=== PATIENT | female | born 1945 | race Caucasian/White ===

== ENCOUNTER 2020-11-07 09:05 | Outpatient (CLI) | payer MEDICARE ==
--- NOTE | 2020-11-08 12:28 | Mammography Report ---
BILATERAL DIGITAL SCREENING MAMMOGRAM 3D/2D: 11/07/2020 CLINICAL: Routine screening. Comparison is made to exams dated: 09/28/2012 mammogram, 09/12/2011 mammogram, and 09/10/2010 mammog [facility]. The tissue of both breasts is heterogeneously dense. This ma y lower the sensitivity of mammography. There is an irregular equal density asymmetry with a spiculated margin in the right breast at 11 o'cl ock middle depth. This is more prominent. No other significant masses, calcifications, or other findings are seen in either breast. IMPRESSION: INCOMPLETE: NEEDS ADDITIONAL IMAGING EVALUATION The irregular equal density asymmetry in the right breast is indeterminate. Additional views with po ssible ultrasound are recommended. This exam was interpreted at Station ID: [id number]. NOTE: For mammograms, a report in lay terms will be sent to the patient. Approximately 15% of breast malignancies will not be visualized mammographically. In the management of a palpable breast mass, a negative mammogram must not discourage biopsy of a clinically suspicious lesion. Electronically Signed By: Kristan beckwith/estella:11/07/2020 16:20:05 ACR BI-RADS Category 0: Incomplete 3340F PARENCHYMAL PATTERN: (D) - The breast(s) demonstrate(s) heterogeneously dense fibroglandular parenchy ma. BI-RADS CATEGORY: (0) - 0 Mammo and [place] [id number] Immediate follow-up LATERALITY: (B)
== END 2020-11-07 09:06 | disposition home or self-care (01) ==
LOC: DI.N 09:05
PROVIDERS: ATTEND Internal Medicine
DX: Z12.31 Encounter for screening mammogram for malignant neoplasm of breast (principal); N64.89 Other specified disorders of breast

== ENCOUNTER 2020-12-06 09:40 | Outpatient (CLI) | payer MEDICARE ==
--- NOTE | 2020-12-07 13:24 | Mammography Report ---
UNILATERAL RIGHT DIGITAL DIAGNOSTIC MAMMOGRAM 3D/2D: 12/06/2020 CLINICAL: Patient returns today to evaluate an asymmetry in the right breast. Additional evaluation r equested from prior study. Comparison is made to exams dated: 11/07/2020 mammogram, 12/06/2020 ultrasound - [facility], 09/28/2012 mammogram, 09/12/2011 mammogram, and 09/10/2010 mammogram - [facility]. The tissue of right breast is heterogeneously dense. This may lower the sensitivity of m ammography. There is an irregular equal density asymmetry with a spiculated margin in the right breast at 11 o'cl ock middle depth. This is not significantly changed. No other significant masses or calcifications are seen in the breast. IMPRESSION: INCOMPLETE: NEEDS ADDITIONAL IMAGING EVALUATION The irregular equal density asymmetry in the right breast is indeterminate. An ultrasound is recomme nded and is scheduled to immediately follow this examination. This exam was interpreted at Station ID: [id number]. NOTE: For mammograms, a report in lay terms will be sent to the patient. Approximately 15% of breast malignancies will not be visualized mammographically. In the management of a palpable breast mass, a negative mammogram must not discourage biopsy of a clinically suspicious lesion. Electronically Signed By: Evan Andrade M.D. jr/:12/06/2020 11:34:22 ACR BI-RADS Category 0: Incomplete 3340F PARENCHYMAL PATTERN: (D) - The breast(s) demonstrate(s) heterogeneously dense fibroglandular parenchy ma. BI-RADS CATEGORY: (0) - 0 RECOMMENDATION: (ADDMAM) - Recommend additional mammographic views. recall n/a LATERALITY: (B)
--- NOTE | 2020-12-07 13:24 | Ultrasound Report ---
LIMITED ULTRASOUND OF RIGHT BREAST AND AXILLA: 12/06/2020 CLINICAL: Patient returns today to evaluate a focal asymmetry in the right breast. Comparison is made to exams dated: 12/06/2020 mammogram, [facility], 09/12/2011 mammogram, and 09/10/2010 mammogram - [facility]. Ultrasound of the right breast 9-10 o'clock, and axilla regions was performed. There is a benign complicated cyst in the right breast at 11 o'clock middle depth. IMPRESSION: BENIGN There is no sonographic evidence of malignancy. The complicated cyst in the right breast is benign. Return to annual mammogram screening schedule is recommended. This exam was interpreted at Station ID: [id number]. Electronically Signed By: Evan Andrade M.D., jr/estella:12/06/2020 11:34:47 Ultrasound BI-RADS: 2 Benign BI-RADS CATEGORY: (2) - 2 Mammogram [id number] return to screening LATERALITY: (B)
== END 2020-12-06 09:41 | disposition home or self-care (01) ==
LOC: DI 09:40
PROVIDERS: ATTEND Internal Medicine
DX: R92.8 Other abnormal and inconclusive findings on diagnostic imaging of breast (principal); N60.01 Solitary cyst of right breast

== ENCOUNTER 2022-07-15 10:15 | Outpatient (CLI) | payer MEDICARE ==
[2022-07-15 10:36] LABS: BASOPHILS % (AUTO) 0.6 %; EOSINOPHILS # (AUTO) 0.1 10^3/uL (0.0-0.7); HCT - HEMATOCRIT 42.9 % (37.0-47.0); HGB - HEMOGLOBIN 13.4 g/dL (12.0-16.0); LYMPHOCYTES # (AUTO) 1.4 10^3/uL (1.5-3.5); LYMPHOCYTES % (AUTO) 22.2 %; MEAN CORPUSCULAR HEMOGLOBIN 25.4 pg (27.0-31.0); MEAN CORPUSCULAR HGB CONC 31.2 g/dL (32.0-36.0); MEAN CORPUSCULAR VOLUME 81.4 fL (81.0-99.0); MEAN PLATELET VOLUME 8.9 fL (7.9-10.8); MONOCYTES # (AUTO) 0.6 10^3/uL (0.0-1.0); MONOCYTES % (AUTO) 9.8 %; NEUTROPHILS # (AUTO) 4.2 10^3/uL (1.5-6.6); NEUTROPHILS % (AUTO) 65.2 %; PLT - PLATELET COUNT 353 10^3/uL (130-450); RED BLOOD COUNT 5.27 10^6/uL (4.20-5.40); RED CELL DISTRIBUTION WIDTH 14.3 % (12.0-15.0); WHITE BLOOD COUNT 6.4 x10^3/uL (4.8-10.8)
[2022-07-15 10:50] LABS: ALBUMIN 4.8 g/dL (3.2-5.5); BILIRUBIN,DIRECT 0.1 mg/dL (0.1-0.5); BILIRUBIN,TOTAL 0.6 mg/dL (0.2-1.0); TOTAL PROTEIN 8.4 g/dL (6.7-8.2)
== END 2022-07-15 10:16 | disposition home or self-care (01) ==
LOC: LAB 10:15
PROVIDERS: ATTEND Physician Assistant
DX: B35.3 Tinea pedis (principal)
CPT/HCPCS: 36415; 80076; 85025

== ENCOUNTER 2022-08-02 08:00 | Outpatient (CLI) | payer MEDICARE ==
[2022-08-02 16:03] LABS: BASOPHILS % (AUTO) 0.5 %; EOSINOPHILS # (AUTO) 0.2 10^3/uL (0.0-0.7); HCT - HEMATOCRIT 42.7 % (37.0-47.0); HGB - HEMOGLOBIN 13.5 g/dL (12.0-16.0); LYMPHOCYTES # (AUTO) 1.9 10^3/uL (1.5-3.5); LYMPHOCYTES % (AUTO) 24.5 %; MEAN CORPUSCULAR HEMOGLOBIN 25.5 pg (27.0-31.0); MEAN CORPUSCULAR HGB CONC 31.6 g/dL (32.0-36.0); MEAN CORPUSCULAR VOLUME 80.7 fL (81.0-99.0); MEAN PLATELET VOLUME 9.4 fL (7.9-10.8); MONOCYTES # (AUTO) 0.9 10^3/uL (0.0-1.0); MONOCYTES % (AUTO) 11.3 %; NEUTROPHILS # (AUTO) 4.7 10^3/uL (1.5-6.6); NEUTROPHILS % (AUTO) 61.4 %; PLT - PLATELET COUNT 337 10^3/uL (130-450); RED BLOOD COUNT 5.29 10^6/uL (4.20-5.40); RED CELL DISTRIBUTION WIDTH 14.5 % (12.0-15.0); WHITE BLOOD COUNT 7.7 x10^3/uL (4.8-10.8)
[2022-08-02 16:57] LABS: ALBUMIN 4.7 g/dL (3.2-5.5); ALBUMIN/GLOBULIN RATIO 1.2 (1.0-2.2); ALKALINE PHOSPHATASE 73 IU/L (42-121); ALT ALANINE AMINOTRANSFERASE 29 IU/L (10-60); AST ASPARTATE AMINOTRANSFERASE 23 IU/L (10-42); BILIRUBIN,TOTAL 0.2 mg/dL (0.2-1.0); BUN - BLOOD UREA NITROGEN 14 mg/dL (6-20); CALCIUM 9.6 mg/dL (8.5-10.3); CARBON DIOXIDE - CO2 27 mmol/L (21-32); CHLORIDE 98 mmol/L (101-111); CHOLESTEROL 294 mg/dL; CREATININE 0.9 mg/dL (0.4-1.0); GFR - MDRD 61 (>89); GLUCOSE 96 mg/dL (70-100); HDL CHOLESTEROL 59 mg/dL; LDL CHOLESTEROL,CALCULATED 191 mg/dL; LDL/HDL RATIO 3.2 (<4.4); POTASSIUM 3.8 mmol/L (3.5-5.0); SODIUM 136 mmol/L (135-145); TOTAL PROTEIN 8.5 g/dL (6.7-8.2); TRIGLYCERIDES 219 mg/dL; VLDL CHOLESTEROL 44 mg/dL
[2022-08-02 18:06] LABS: ESTIMATED AVERAGE GLUCOSE 137 mg/dL (70-100); HEMOGLOBIN A1c% 6.4 % (4.27-6.07)
== END 2022-08-02 23:59 | disposition home or self-care (01) ==
LOC: LAB.R 08:00
PROVIDERS: ATTEND Internal Medicine
DX: Z00.00 Encounter for general adult medical examination without abnormal findings (principal); L30.9 Dermatitis, unspecified; R19.5 Other fecal abnormalities; R73.01 Impaired fasting glucose; D72.810 Lymphocytopenia; J45.909 Unspecified asthma, uncomplicated; R42 Dizziness and giddiness
CPT/HCPCS: 80053; 80061; 83036; 83721; 84443; 85025

== ENCOUNTER 2023-08-20 07:44 | Outpatient (CLI) | payer MEDICARE ==
--- NOTE | 2023-08-20 15:35 | Mammography Report ---
BILATERAL DIGITAL SCREENING MAMMOGRAM 3D/2D: 08/20/2023 CLINICAL: Routine screening. Comparison is made to exams dated: 08/12/2022 mammogram, 12/06/2020 mammogram, and 11/07/2020 mammogram - [facility]. Both breasts are heterogeneously dense, which may obscure small masses (category c / 51-75% glandular tissue). No significant masses, calcifications, or other findings are seen in either breast. There has been no significant interval change. IMPRESSION: NEGATIVE There is no mammographic evidence of malignancy. A 1 year screening mammogram is recommended. Based on the Tyrer Cuzick model (a risk assessment model) the patients lifetime risk is 4.1% and her 10 year risk is 4.1%. According to the ACR, ACS, and NCCN guidelines, an annual breast MRI exam chikis g with mammogram is recommended if the patients lifetime risk is 20% or greater. This exam was interpreted at Station ID: [id number]. NOTE: For mammograms, a report in lay terms will be sent to the patient. Approximately 15% of breast malignancies will not be visualized mammographically. In the management of a palpable breast mass, a negative mammogram must not discourage biopsy of a clinically suspicious lesion. Electronically Signed By: Griffin smith/estella:08/20/2023 14:56:14 letter sent: No_Letter ACR BI-RADS Category 1: Negative 3341F PARENCHYMAL PATTERN: (D) - The breast(s) demonstrate(s) heterogeneously dense fibroglandular tameka espinal. BI-RADS CATEGORY: (1) - 1 Mammogram [id number] 1 year screening LATERALITY: (B)
== END 2023-08-20 07:45 | disposition home or self-care (01) ==
LOC: DI 07:44
PROVIDERS: ATTEND Internal Medicine
DX: Z12.31 Encounter for screening mammogram for malignant neoplasm of breast (principal); R92.333 Mammographic heterogeneous density, bilateral breasts

== ENCOUNTER 2024-02-16 09:05 | Outpatient (CLI) | payer MEDICARE ==
--- NOTE | 2024-02-16 14:37 | MRI Report ---
PROCEDURE: MRI brain without contrast INDICATIONS: VERTIGO TECHNIQUE: Multiplanar multisequential MR images of the brain were obtained without contrast COMPARISON: None FINDINGS: CSF Spaces: Basal cisterns are patent. No extra-axial fluid collections. Ventricles are normal in size and shape. Brain: No intracranial masses or hemorrhage. Flores/white matter interface is normal. Brainstem appe ars normal. Diffusion-weighted images shows no evidence of acute infarct. Normal intravascular flow voids are present. Moderate atrophy and mild white matter chronic ischemic changes noted. Old lacunar infarct noted in t he right thalamus. Skull and face: Calvarium has normal marrow signal. Orbits appear normal. Sinuses: Sinuses and mastoids are clear. IMPRESSION: Atrophy, chronic ischemic change in old thalamic lacunar infarct without acute infarct, hemorrhage or mass lesion Reviewed by: Johnny Diaz MD on 02/16/2024 1:35 PM JOHN Approved by: Johnny Diaz MD on 02/16/2024 1:35 PM AKCLARISSA Station ID: [id number]
== END 2024-02-16 09:06 | disposition home or self-care (01) ==
LOC: DI 09:05
PROVIDERS: ATTEND Internal Medicine
DX: R42 Dizziness and giddiness (principal); Z86.73 Personal history of transient ischemic attack (TIA), and cerebral infarction without residual deficits

== ENCOUNTER 2024-03-01 10:48 | Emergency (ER) | payer MEDICARE ==
--- NOTE | 2024-03-01 11:30 | ED Physician Documentation ---
PD HPI HEADACHE - Stated complaint Stated Complaint: DIZZINESS,CONFUSION,SLURRED SPEECH - Chief complaint Chief Complaint: Neuro - History obtained from History obtained from: Patient - Additional information Additional information: 78-year-old female with history of vertigo presents by private vehicle from home for headache and nausea. Patient states that she was doing her normal daytime routine when she felt a sudden severe frontal headache. She states that while she was in pain she was very confused and could not do things such as take her shirt off or brush her teeth. Her came home and when she told him her symptoms he brought her in for evaluation. Triage complaint states slurred speech, patient denies any slurred speech, stating that it was confusion with her headache that caused her to come to the ER today. Speech is currently clear, intelligible. Review of Systems Constitutional: denies: Fever, Chills Cardiac: denies: Chest pain / pressure, Palpitations, Calf pain Respiratory: denies: Dyspnea, Cough, Wheezing GI: reports: Nausea. denies: Abdominal Pain, Vomiting, Constipation, Diarrhea Skin: denies: Rash, Lesions, Abrasion (s), Laceration (s) Neurologic: reports: Confused, Headache. denies: Generalized weakness, Focal weakness, Numbness, Syncope, Seizure, Head injury PD PAST MEDICAL HISTORY - Present Medications Home Medications: Ambulatory Orders Medication Instructions Recorded Confirmed amLODIPine [Norvasc] 5 mg PO DAILY #30 tablet 03/01/24 - Allergies Allergies/Adverse Reactions: Allergies Allergy/AdvReac Type Severity Reaction Status Date / Time codeine Allergy Unknown Verified 03/01/24 11:03 fentanyl Allergy Unknown Verified 03/01/24 11:02 Iodinated Contrast Media Allergy Anaphylaxis Verified 03/01/24 11:02 - Social History Does the pt smoke?: No Smoking Status: Never smoker Does the pt drink ETOH?: No Does the pt have substance abuse?: No - Immunizations Immunizations are current?: Yes - POLST Patient has POLST: No PD ED PE NORMAL - Vitals Vital signs reviewed: Yes - General General: Alert and oriented X 3, No acute distress, Well developed/nourished - HEENT HEENT: Atraumatic, PERRL, EOMI - Neck Neck: Supple, no meningeal sign - Cardiac Cardiac: RRR, Strong equal pulses - Respiratory Respiratory: No respiratory distress, Clear bilaterally - Abdomen Abdomen: Soft, Non tender, Non distended - Derm Derm: Normal color, Warm and dry, No rash - Extremities Extremities: No deformity, No tenderness to palpate, Normal ROM s pain, No edema - Neuro Neuro: Alert and oriented X 3, 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 On arrival patient is awake, alert, no acute distress. Speech is clear and intelligible, she moves all extremities without any difficulty. NIH 0. Due to thunderclap type onset of headache a CT scan will be ordered and a headache cocktail ordered. CT imaging negative for acute findings. Patient did have elevated blood p ressure on arrival, which she states she never has and a dose of hydralazine ordered. Hydralazine resolved patient's elevated blood pressure. Patient received headache cocktail, states that she "does not feel worse". She states she still has a headache. I asked patient what normally helps with her headaches and she says "nothing". I offered additional headache medications to her, however patient declined stating that she would like to go home. Patient informed of her elevated blood pressure reading and offered to start her on a low-dose blood pressure medication. Patient accepted. She was advised to follow-up with primary care doctor for further management of elevated blood pressure readings. ED return precautions discussed at bedside. Departure - Departure Disposition: 01 Home, Self Care Clinical Impression: Headache Condition: Stable Instructions: ED Headache Migraine Prescriptions: amLODIPine [Norvasc] 5 mg PO DAILY #30 tablet Comments: Your CT imaging today was normal. I do not know the exact cause of your headache. You may take Tylenol and ibuprofen at home as needed for pain. Make sure to stay well-hydrated. Follow-up with your primary care doctor Your blood pressure here today was high. I will be starting you on a low-dose blood pressure medication until you can see your primary care doctor. Amlodipine has been sent to the [facility] in [place] Forms: PCP List Discharge Date/Time: 03/01/24 14:06
[2024-03-01] MEDS: ONDANSETRON 4 MG/2 ML VIAL IVP STA (11:47)
[2024-03-01] MEDS: SODIUM CHLORIDE 0.9% 1,000 ML IV STA (11:47)
--- NOTE | 2024-03-01 12:02 | CT Report ---
PROCEDURE: Head WO INDICATIONS: thunderclap headache TECHNIQUE: Noncontrast 4.5 mm thick angled axial sections acquired from the foramen magnum to the vertex. For r adiation dose reduction, the following was used: automated exposure control, adjustment of mA and/or kV according to patient size. COMPARISON: Brain MRI dated 02/16/2024. FINDINGS: Image quality: Excellent. CSF spaces: Basal cisterns are patent. No extra-axial fluid collections. Ventricles are normal in size and shape. Brain: No midline shift. No intracranial masses or hemorrhage. Flores-white matter interface is norm al. Age-related volume loss and very mild, age-appropriate small vessel ischemic change. Old small fo ervin right thalamic lacunar infarction Skull and face: Calvarium and visualized facial bones are intact, without suspicious lesions. Sinuses: Visualized sinuses and mastoids are clear. There is a prominent osteophytic bar off of the nasal septum to the left, narrowing the left nasal passage. IMPRESSION: No acute intracranial pathology. Age-appropriate volume loss and mild small vessel ischemic change, old right thalamic lacunar infarct ion. Reviewed by: Hamilton Orlando MD on 03/01/2024 12:00 PM PDT Approved by: Hamilton Orlando MD on 03/01/2024 12:00 PM PDT Station ID: [id number]
[2024-03-01] MEDS: diphenhydrAMINE INJ 50 MG/ML VIAL IVP STA (12:26)
[2024-03-01] MEDS: METOCLOPRAMIDE 10 MG/2 ML VIAL IVP STA (12:26)
[2024-03-01] MEDS: KETOROLAC 15 MG/ML VIAL IVP STA (12:27)
[2024-03-01] MEDS: hydrALAZINE INJ 20 MG/ML VIAL IVP STA (12:56)
[2024-03-01 13:39] VITALS: O2SAT 99
[2024-03-01 14:08] VITALS: BP 168/85
== END 2024-03-01 14:06 | disposition home or self-care (01) ==
LOC: ED 10:48
DX: R51.9 Headache, unspecified (principal); R03.0 Elevated blood-pressure reading, without diagnosis of hypertension
CPT/HCPCS: 36415; 70450; 96361; 96374; 96375; 99283; 99284; J1200; J2765

== ENCOUNTER 2024-04-16 16:53 | Outpatient (CLI) | payer MEDICARE ==
--- NOTE | 2024-04-17 20:52 | Ultrasound Report ---
PROCEDURE: Carotid Doppler Complete INDICATIONS: AMS TECHNIQUE: Color and pulse Doppler interrogation was performed of both carotid systems, with image documentation and velocity measurements. COMPARISON: None. FINDINGS: Right side: Brachial blood pressure: 185/73 mm Hg. Common carotid artery peak systolic velocity: 58.26 cm/sec. Internal carotid artery peak systolic velocity: 65.58 cm/sec. Internal carotid artery end diastolic velocity: 14.4 cm/sec. External carotid artery peak systolic velocity: 88.53 cm/sec. ICA/CCA peak systolic ratio: 1.1 . Flores scale imaging description: Mild atherosclerotic plaque. Percent internal carotid artery stenosis: Less than 50 percent stenosis. Vertebral artery: Flow direction is antegrade. Left side: Brachial blood pressure: 176/67 mm Hg. Common carotid artery peak systolic velocity: 57.12 cm/sec. Internal carotid artery peak systolic velocity: 67.02 cm/sec. Internal carotid artery end diastolic velocity: 18.28 cm/sec. External carotid artery peak systolic velocity: 100.32 cm/sec. ICA/CCA peak systolic ratio: 1.2 . Flores scale imaging description: Mild atherosclerotic plaque. Percent internal carotid artery stenosis: Less than 50 percent stenosis. Vertebral artery: Flow direction is antegrade. IMPRESSION: 1. In the right internal carotid artery, there is less than 50 percent stenosis based on peak systoli c velocity criteria. 2. In the left internal carotid artery, there is less than 50 percent stenosis based on peak systolic velocity criteria. 3. Antegrade blood flow within the right vertebral artery. 4. Antegrade blood flow within the left vertebral artery. The estimate of stenosis included in the report of the imaging study was calculated using the [facility]-end orsed standards of carotid artery stenosis. Reviewed by: Ishan Ortiz MD on 04/17/2024 8:50 PM PDT Approved by: Ishan Ortiz MD on 04/17/2024 8:50 PM PDT Station ID: [id number]
== END 2024-04-16 16:54 | disposition home or self-care (01) ==
LOC: DI 16:53
PROVIDERS: ATTEND Internal Medicine
DX: I65.23 Occlusion and stenosis of bilateral carotid arteries (principal); R41.82 Altered mental status, unspecified
CPT/HCPCS: 93880

== ENCOUNTER 2024-08-15 08:51 | Inpatient (IN) ==
--- NOTE | 2024-08-15 08:55 | ED Physician Documentation ---
PD HPI FOCAL NEURO Stated complaint Stated Complaint: CODE STROKE Chief complaint Chief Complaint: Neuro History obtained from History obtained from: Patient, Family and EMS History of Present Illness Timing - onset: How many days ago (5 days ago initial symptoms that have undulated but not resolved until last evening/today, when they are worse. Trobuel speaking but can follow commands okay. Right sided weakness) Timing - duration: Days Timing - details: Still present and Waxing and waning; No Intermittant Severity of deficit: Moderate Weakness: Face, Arm, Leg, Right and Left (faace) Numbness: Face, Arm, Leg and Right Associated symptoms: No Headache, Nausea / vomiting, Fall or Head injury Contributing factors: negative Anticoagulated or Atrial fibrillation Similar symptoms before: Work up / diagnostics (Had prior symptoms this past summer in February or March with evaluation by CT and MRI and carotid Dopplers. No vascular occlusions. No new injury at the time. There was evidence for an old lacunar infarct. Had a heart monitor as well. Currently on baby aspirin.) Meds/Allgy Home Medications Ambulatory Orders Medication Instructions Recorded Confirmed amlodipine 5 mg tablet 5 mg PO DAILY #30 tabs 03/01/24 08/15/24 aspirin 81 mg chewable tablet 81 mg PO DAILY 08/15/24 08/15/24 Allergies Allergies Allergy/AdvReac Type Severity Reaction Status Date / Time codeine Allergy Unknown Verified 08/15/24 09:56 fentanyl Allergy Unknown Verified 08/15/24 09:56 Iodinated Contrast Media Allergy Anaphylaxis Verified 08/15/24 09:56 [facility] Social History Social History (Updated 08/15/24 @ 09:03 by Griffin Arriaza, RN, BSN) Smoking Status: Never smoker Do you vape?: No Living arrangement: At home Marital Status: Living Condition: With spouse/s.o. Support Person: Yes Relationship: Spouse Physical Activity: Walking Level: Independent Do you feel safe in your home environment?: Yes Suffered physical, verbal, emotional, or financial abuse?: No History of Abuse: No ETOH Use: Wine Frequency: Weekly Substance Use: denies use POLST Patient has POLST: No Exam Constitutional normal general appearance and average body habitus HENMT normocephalic and head/scalp atraumatic Eyes PERRL and EOMs intact bilaterally Neck/C-Spine no carotid bruits Lymph no lymphadenopathy noted Respiratory normal respiratory effort and clear to auscultation bilaterally Cardiovascular normal heart rate noted, regular rhythm noted and no murmur Gastrointestinal abdomen soft to palpation and nontender to palpation Extremities no tenderness Psychiatry mental status grossly normal, oriented x3 and cooperative Skin skin color normal Results Vitals Vitals: Vital Signs - 24 hr 08/15/24 08:55 08/15/24 09:03 08/15/24 09:33 Temperature 36.5 C Temperature Source Temporal Artery Scan Pulse Rate 90 82 81 Respiratory Rate 28 H 18 16 Blood Pressure 142/87 H 167/104 H 189/85 H O2 Saturation 95 95 95 O2 Source Room air Room air Room air Pain Intensity 0 0 0 08/15/24 10:03 08/15/24 10:33 Temperature Temperature Source Pulse Rate 79 79 Respiratory Rate 22 23 Blood Pressure 199/95 H 195/91 H O2 Saturation 95 96 O2 Source Room air Room air Pain Intensity 0 0 Oxygen O2 Source Room air Labs Labs: Laboratory Tests 08/15/24 08:58 WBC 12.5 H RBC 5.37 Hgb 14.0 Hct 43.8 MCV 81.6 MCH 26.1 L MCHC 32.0 RDW 14.0 Plt Count 364 MPV 9.8 Neut # (Auto) 9.9 H Lymph # (Auto) 1.3 L [place] # (Auto) 1.3 H Eos # (Auto) 0.0 Baso # (Auto) 0.0 Absolute Nucleated RBC 0.00 Nucleated RBC % 0.0 ESR 64 H Sodium 135 Potassium 3.7 Chloride 99 L Carbon Dioxide 26 Anion Gap 10.0 BUN 15 Creatinine 0.7 Estimated GFR (MDRD) 81 L Glucose 114 H Calcium 9.5 Magnesium 1.9 Total Bilirubin 0.7 AST 17 ALT 13 Alkaline Phosphatase 58 Total Protein 8.0 Albumin 4.3 Globulin 3.7 Albumin/Globulin Ratio 1.2 Lipase 21 TSH 1.87 PD Medical Decision Making ED course Complexity details: reviewed old records, reviewed results (CT of the head showed a new subacute infarct on the left. No signs of bleeding or swelling. No obvious tumors.), considered differential and d/w seo consultant (Hospitalist) Reviewed Lab Results: The patient does have history of contrast media allergy. We did not therefore immediately do a CT angiogram but we can pretreat and get 1 later. She did have a carotid ultrasound in March which was 4 months ago and showed no stenoses at the time. There is already signs of a infarct pattern and her symptoms have been 4 to 5 days so out of the window for any interventions. Given full aspirin and Plavix here. Discharge Plan Discharge Patient Disposition: ED Place in Observation Condition: Stable Clinical Impression: Acute right-sided weakness, Acute CVA (cerebrovascular accident) NIH Stroke Scale Interval: Baseline Instructions: Administer stroke scale items in the order listed. Record performance in each category after each subscale exam. Do not go back and change scores. Follow directions provided for each exam technique. Scores should reflect what the patient does, not what the clinician thinks the patient can do. The clinician should record answers while administering the exam and work quickly. Except where indicated, the patient should not be coached (i.e., repeated requests to patient to make a special effort) Instructions Scale Definition 3 1a. Level of Consciousness: The legal investigator must choose a response if a full evaluation is prevented by such obstacles as an endotracheal tube, language barrier, orotracheal trauma/bandages. A 3 is scored only if the patient makes no movement (other than reflexive posturing) in response to noxious stimulation. 0 = Alert; keenly responsive. 1 = Not alert; but arousable by minor stimulation to obey, answer, or respond. 2 = Not alert; requires repeated stimula tion to attend, or is obtunded and requires strong or painful stimulation to make movements (not stereotyped). 3 = Responds only with reflex motor or autonomic effects or totally unresponsive, flaccid, and areflexic. 1b. LOC Questions: The patient is asked the month and his/her age. The answer must be correct - there is no partial credit for being close. Aphasic and stuporous patients who do not comprehend the questions will score 2. Patients unable to speak because of endotracheal intubation, orotracheal trauma, severe dysarthria from any cause, language barrier, or any other problem not secondary to aphasia are given a 1. It is important that only the initial answer be graded and that the examiner not "help" the patient with verbal or non-verbal cues. 0 = Answers both questions correctly. 1 = Answers one question correctly. 2 = Answers neither question correctly. 1c. LOC Commands: The patient is asked t o open and close the eyes and then to as400 programmer and release the non-paretic hand. Substitute another one step command if the hands cannot be used. Credit is given if an unequivocal attempt is made but not completed due to weakness. If the patient does not respond to command, the task should be demonstrated to him or her (pantomime), and the result scored (i.e., follows none, one or two commands). Patients with trauma, amputation, or other physical impediments should be given suitable one-step commands. Only the first attempt is scored. 0 = Performs both tasks correctly. 1 = Performs one task correctly. 2 = Performs neither task correctly. 2. Best Gaze: Only horizontal eye moveme nts will be tested. Voluntary or reflexive (oculocephalic) eye movements will be scored, but caloric testing is not done. If the patient has a conjugate deviation of the eyes that can be overcome by voluntary or reflexive activity, the score will be 1. If a patient has an isolated peripheral nerve paresis (CN III, IV or ), score a 1. Gaze is testable in all aphasic patients. Patients with ocular trauma, bandages, pre-existing blindness, or other disorder of visual acuity or lima should be tested with reflexive movements, and a choice made by the legal investigator. Establishing eye contact and then moving about the patient from side to side will occasionally clarify the presence of a partial gaze palsy. 0 = Normal. 1 = Partial gaze palsy; gaze is abnormal in one or both eyes, but forced deviation or total gaze paresis is not present. 2 = Forced deviation, or total gaze pare sis not overcome by the oculocephalic maneuver. 3. Visual: Visual lima (upper and lowe r quadrants) are tested by confrontation, using finger counting or visual threat, as appropriate. Patients may be encouraged, but if they look at the side of the moving fingers appropriately, this can be scored as normal. If there is unilateral blindness or enucleation, visual lima in the remaining eye are scored. Score 1 only if a clear-cut asymmetry, including quadrantanopia, is found. If patient is blind from any cause, score 3. Double simultaneous stimulation is performed at this point. If there is extinction, patient receives a 1, and the results are used to respond to item 11. 0 = No visual loss. 1 = Partial hemianopia. 2 = Complete hemianopia. 3 = Bilateral hemianopia (blind includin g cortical blindness). 4. Facial Palsy: Ask or use pantomime to encourage the patient to show teeth or raise eyebrows and close eyes. Score symmetry of grimace in response to noxious stimuli in the poorly responsive or non-comprehending patient. If facial trauma/bandages, orotracheal tube, tape or other physical barriers obscure the face, these should be removed to the extent possible. 0 = Normal symmetrical movements. 1 = Minor paralysis (flattened nasolabia l fold, asymmetry on smiling). 2 = Partial paralysis (total or near-tot al paralysis of lower face). 3 = Complete paralysis of one or both si rui (absence of facial movement in the upper and lower face). 5. Motor Arm: The limb is placed in the appropriate position: extend the arms (palms down) 90 degrees (if sitting) or 45 degrees (if supine). Drift is scored if the arm falls before 10 seconds. The aphasic patient is encouraged using urgency in the voice and pantomime, but not noxious stimulation. Each limb is tested in turn, beginning with the non-paretic arm. Only in the case of amputation or joint fusion at the shoulder, the examiner should record the score as untestable (UN), and clearly write the explanation for this choice. 0 = No drift; limb holds 90 (or 45) degr ees for full 10 seconds. 1 = Drift; limb holds 90 (or 45) degrees , but drifts down before full 10 seconds; does not hit bed or other support. 2 = Some effort against gravity; limb cannot get to or maintain (if cued) 90 (or 45) degrees, drifts down to bed, but has some effort against gravity. 3 = No effort against gravity; limb fall s. 4 = No movement. UN = Amputation or joint fusion, explain: 5a. Left Arm 5b. Right Arm 6. Motor Leg: The limb is placed in the appropriate position: hold the leg at 30 degrees (always tested supine). Drift is scored if the leg falls before 5 seconds. The aphasic patient is encouraged using urgency in the voice and pantomime, but not noxious stimulation. Each limb is tested in turn, beginning with the non-paretic leg. Only in the case of amputation or joint fusion at the hip, the examiner should record the score as untestable (UN), and clearly write the explanation for this choice. 0 = No drift; leg holds 30-degree positi on for full 5 seconds. 1 = Drift; leg falls by the end of the 5 -second period but does not hit bed. 2 = Some effort against gravity; leg fal ls to bed by 5 seconds, but has some effort against gravity. 3 = No effort against gravity; leg falls to bed immediately. 4 = No movement. UN = Amputation or joint fusion, explain: 6a. Left Leg 6b. Right Leg 7. Limb Ataxia: This item is aimed at fi nding evidence of a unilateral cerebellar lesion. Test with eyes open. In case of visual defect, ensure testing is done in intact visual field. The nnhupm-xott-kywvlq and heel-sow tests are performed on both sides, and ataxia is scored only if present out of proportion to weakness. Ataxia is absent in the patient who cannot understand or is paralyzed. Only in the case of amputation or joint fusion, the examiner should record the score as untestable (UN), and clearly write the explanation for this choice. In case of blindness, test by having the patient touch nose from extended arm position. 0 = Absent. 1 = Present in one limb. 2 = Present in two limbs. UN = Amputation or joint fusion, explain: 8. Sensory: Sensation or grimace to pinp cynthia when tested, or withdrawal from noxious stimulus in the obtunded or aphasic patient. Only sensory loss attributed to stroke is scored as abnormal and the examiner should test as many body areas (arms [not hands], legs, trunk, face) as needed to accurately check for hemisensory loss. A score of 2, severe or total sensory loss, shoul d only be given when a severe or total loss of sensation can be clearly demonstrated. Stuporous and aphasic patients will, therefore, probably score 1 or 0. The patient with brainstem stroke who has bilateral loss of sensation is scored 2. If the patient does not respond and is quadriplegic, score 2. Patients in a coma (item 1a=3) are automatically given a 2 on this item. 0 = Normal; no sensory loss. 1 = Dlda-ac-vvlwyblr sensory loss; patient feels pinprick is less sharp or is dull on the affected side; or there is a loss of superficial pain with pinprick, but patient is aware of being touched. 2 = Severe to total sensory loss; patient is not aware of being touched in the face, arm, and leg. 9. Best Language: A great deal of inform ation about comprehension will be obtained during the preceding sections of the examination. For this scale item, the patient is asked to describe what is happening in the attached picture, to name the items on the attached naming sheet and to read from the attached list of sentences. Comprehension is judged from responses here, as well as to all of the commands in the preceding general neurological exam. If visual loss interferes with the tests, ask the patient to identify objects placed in the hand, repeat, and produce speech. The intubated patient should be asked to write. The patient in a coma (item 1a=3) will automatically score 3 o n this item. The examiner must choose a score for the patient with stupor or limited cooperation, but a score of 3 should be used only if the patient is mute and follows no one-step commands. 0 = No aphasia; normal. 1 = Fiqw-zp-jmuiabjg aphasia; some obvious loss of fluency or facility of comprehension, without significant limitation on ideas expressed or form of expression. Reduction of speech and/or comprehension, however, makes conversation about provided materials difficult or impossible. For example, in conversation about provided materials, examiner can identify picture or naming card content from patients response. 2 = Severe aphasia; all communication is through fragmentary expression; great need for inference, questioning, and guessing by the listener. Range of information that can be exchanged is limited; listener carries burden of communication. Examiner cannot identify materials provided from patient response. 3 = Mute, global aphasia; no usable speech or auditory comprehension. 10. Dysarthria: If patient is thought to be normal, an adequate sample of speech must be obtained by asking patient to read or repeat words from the attached list. If the patient has severe aphasia, the clarity of articulation of spontaneous speech can be rated. Only if the patient is intubated or has other physical barriers to producing speech, the examiner should record the score as untestable (UN), and clearly write an explanation for this choice. Do not tell the patient why he or she is being tested. 0 = Normal. 1 = Pxyp-rp-memugqfh dysarthria; patient slurs at least some words and, at worst, can be understood with some difficulty. 2 = Severe dysarthria; patient's speech is so slurred as to be unintelligible in the absence of or out of proportion to any dysphasia, or is mute/anarthric. UN = Intubated or other physical barrier, explain: 11. Extinction and Inattention (formerly Neglect): Sufficient information to identify neglect may be obtained during the prior testing. If the patient has a severe visual loss preventing visual double simultaneous stimulation, and the cutaneous stimuli are normal, the score is normal. If the patient has aphasia but does appear to attend to both sides, the score is normal. The presence of visual spatial neglect or anosagnosia may also be taken as evidence of abnormality. Since the abnormality is scored only if present, the item is never untestable. 0 = No abnormality. 1 = Visual, tactile, auditory, spatial, or personal inattention or extinction to bilateral simultaneous stimulation in one of the sensory modalities. 2 = Profound mignon-inattention or extinction to more than one modality; does not recognize own hand or orients to only one side of space. The first three images are for question 9) Best Language The following image is for question 10) Dysarthria Citation National Institutes of Health, National [place] of Neurological Disorders and Stroke NIHSS Level of Consciousness Level of consciousness: (0) Alert, Keenly responsive LOC Questions: (0) Answers both Q's correct LOC Commands: (0) Performs both correctly Gaze Best Gaze: (0) Normal Visual Visual: (0) No loss Facial Palsy Facial Palsy: (0) Normal, symmetrical movement Motor Arms (both separate) Motor Arm (right): (1) Drift Motor Arm (left): (0) No drift Motor Legs (both separate) Motor Leg (right): (1) Drift Motor Leg (left): (0) No drift Limb Ataxia Limb Ataxia: (1) Present in 1 limb Sensory Sensory: (1) Hofq-pe-ixscbyri loss Best Language Best Language: (1) hpib-ca-khcvyxf Dysarthria Dysarthria: (0) Normal Extinction and Inattention (formally neg Extinction and inattention: (0) No abnormality Total Score/Results Total Score/Result: 5
[2024-08-15 09:05] LABS: BASOPHILS % (AUTO) 0.3 %; EOSINOPHILS % (AUTO) 0.2 %; HCT - HEMATOCRIT 43.8 % (37.0-47.0); LYMPHOCYTES # (AUTO) 1.3 10^3/uL (1.5-3.5); LYMPHOCYTES % (AUTO) 10.2 %; MEAN CORPUSCULAR HEMOGLOBIN 26.1 pg (27.0-31.0); MEAN CORPUSCULAR VOLUME 81.6 fL (81.0-99.0); MEAN PLATELET VOLUME 9.8 fL (7.9-10.8); MONOCYTES # (AUTO) 1.3 10^3/uL (0.0-1.0); NEUTROPHILS # (AUTO) 9.9 10^3/uL (1.5-6.6); NEUTROPHILS % (AUTO) 78.7 %; PLT - PLATELET COUNT 364 10^3/uL (130-450); RED BLOOD COUNT 5.37 10^6/uL (4.20-5.40); WHITE BLOOD COUNT 12.5 x10^3/uL (4.8-10.8)
[2024-08-15 09:21] LABS: MAGNESIUM 1.9 mg/dL (1.7-2.3)
[2024-08-15 09:27] LABS: ALBUMIN 4.3 g/dL (3.2-5.5); ALBUMIN/GLOBULIN RATIO 1.2 (1.0-2.2); BILIRUBIN,TOTAL 0.7 mg/dL (0.2-1.0); CALCIUM 9.5 mg/dL (8.5-10.3); CREATININE 0.7 mg/dL (0.6-1.3); POTASSIUM 3.7 mmol/L (3.5-4.5)
--- NOTE | 2024-08-15 09:32 | CT Report ---
PROCEDURE: CT Head W/O Stroke Protocol INDICATIONS: unilateral weakness and speech problems TECHNIQUE: Helical axial CT of the brain was obtained without contrast and reformatted in multiple p lanes. COMPLIANCE STATEMENTS: Radiation dose reduction was achieved using automated exposure control or adj ustment of mA and/or kV according to patient size. This study fulfills neurological imaging criteria for inclusion or exclusion of acute stroke therapies based on available published neurological imagi ng guidelines. COMPARISON: 03/01/2024 FINDINGS: CSF spaces: Ventricles are appropriate in size and position. No hydrocephalus. Basal cisterns unre markable. Brain: No midline shift. No intracranial masses or hemorrhage. Geographic hypoattenuation noted gladys suring 2.4 cm involving the left caudate head and surrounding white matter. No evidence of hemorrhagi c conversion. No significant mass effect or midline shift. Moderate atrophy and multifocal white mat ter chronic ischemic change noted. Atherosclerotic vascular calcification noted in the cavernous segm ents of both internal carotid arteries. Old lacunar infarct in the right thalamus remains unchanged. Skull and face: Calvarium and skull base are unremarkable without suspicious lesion. Sinuses: Visualized sinuses and mastoids are clear. IMPRESSION: Subacute infarcts involving the right caudate and surrounding white matter. No hemorrhagic conversion or mass effect. Moderate atrophy and white matter chronic ischemic change Note: Critical results were discussed with patient's ER physician on 08/15/2024 at 8:30 AM [place] time. Reviewed by: Johnny Diaz MD on 08/15/2024 8:30 AM AKST Approved by: Johnny Diaz MD on 08/15/2024 8:30 AM AKST Station ID: [id number]
[2024-08-15 09:33] LABS: THYROID STIMULATING HORMONE 1.87 uIU/mL (0.34-5.60)
[2024-08-15] MEDS: CLOPIDOGREL 75 MG TABLET PO STA (10:38)
[2024-08-15] MEDS: ASPIRIN 325 MG TABLET PO STA (10:38)
[2024-08-15] MEDS: diphenhydrAMINE INJ 50 MG/ML VIAL IVP STA (11:10)
[2024-08-15] MEDS: DEXAMETHASONE 10 MG/ML VIAL IVP STA (11:10)
[2024-08-15] MEDS ORDERED: iohexoL-300 100 ML VIAL ONE (11:51)
[2024-08-15] MEDS ORDERED: ONDANSETRON 4 MG/2 ML VIAL IVP PRN (13:27)
[2024-08-15] MEDS ORDERED: oxyCODONE 5 MG TABLET PO PRN (13:27)
[2024-08-15] MEDS ORDERED: SODIUM CHLORIDE FLUSH 0.9% 10 ML SYRINGE IVP PRN (13:27)
[2024-08-15] MEDS ORDERED: ACETAMINOPHEN 325 MG TABLET PO PRN (13:27)
[2024-08-15] MEDS ORDERED: ONDANSETRON ODT 4 MG TABLET TL PRN (13:27)
--- NOTE | 2024-08-15 13:30 | HISTORY & PHYSICAL EXAMINATION ---
Chief Complaint <Juvenal Amezcua - Last Filed: 08/15/24 17:50> Chief Complaint Chief Complaint: acute CVA History of Present Illness <Juvenal Amezcua - Last Filed: 08/15/24 17:50> Admitted From Admitted From:: ER History Obtained From Records Reviewed: stonee History obtained from: expanse/patient/son Exam Limitations: Aphasia, likely from current complaint. History of Present Illness HPI Comment/Other: Patient is a 78 year old female being admitted from the ER for CVA with symptoms that are reported to have started Friday. In speaking with the patient's , he first noticed slight confusion in the form of expressive aphasia which began on Friday. He reports she was still coherent and functional to a point that did not prompt any immediate alarm. Then on Friday or , he noticed she began to be a little more unsteady when walking. He was concerned with insurance coverage and, due to the patient's history, tried making an appointment with a vascular specialist. Overall he felt the symptoms were progressing very slowing and she still retained a lot of function that did not indicate an obvious stroke, so he did not feel 911 was appropriate or necessary. He continues stating that Friday night, no immediate changes were noted, she was able to eat, take her medications, and otherwise function with the only symptoms being the persistent confusion and unsteadiness. This morning, he states he went to wake her up and noticed significant acute changes prompting him to call 911. Throughout the week, he states the patient never complained of nausea or vomiting. He does note she had a headache, however this is a chronic issue she deals with and she never indicated it was worse than normal. No other signs or symptoms were reported. Patient is currently presenting with minor expressive aphasia stating she is having difficulty putting some thoughts into words. Unable to fully asses mental status, possibly due to aphasia. Communicating is noticeably easier when asking direct yes/no questions, but she can still have basic conversations. She is able to identify objects presented to her and appropriately follow commands. Right sided facial droop observed and confirmed by family members. No obvious strength differences noted between extremities to include cover seamer strengths and upper and lower extremity pushing/pulling. Arm drift and leg drift were insignificant bilaterally. Patient is denying any current headache, nausea, vomiting, swallowing difficulty, chest pain, shortness of breath, or other complaints. <Amy Burrell MD - Last Filed: 08/15/24 18:04> History of Present Illness HPI Comment/Other: Patient is a 78 year old female being admitted from the ER for CVA with symptoms that are reported to have started Friday. In speaking with the patient's , he first noticed slight confusion in the form of expressive aphasia which began on Friday. He reports she was still coherent and functional to a point that did not prompt any immediate alarm. Then on Friday or , he noticed she began to be a little more unsteady when walking. He was concerned with insurance coverage and, due to the patient's history, tried making an appointment with a vascular specialist. Overall he felt the symptoms were progressing very slowing and she still retained a lot of function that did not indicate an obvious stroke, so he did not feel 911 was appropriate or necessary. He continues stating that Friday night, no immediate changes were noted, she was able to eat, take her medications, and otherwise function with the only symptoms being the persistent confusion and unsteadiness. This morning, he states he went to wake her up and noticed significant acute changes prompting him to call 911. Throughout the week, he states the patient never complained of nausea or vomiting. He does note she had a headache, however this is a chronic issue she deals with and she never indicated it was worse than normal. No other signs or symptoms were reported. Patient is currently presenting with minor expressive aphasia stating she is having difficulty putting some thoughts into words. Unable to fully asses mental status, possibly due to aphasia. Communicating is noticeably easier when asking direct yes/no questions, but she can still have basic conversations. She is able to identify objects presented to her and appropriately follow commands. Right sided facial droop observed and confirmed by family members. No obvious strength differences noted between extremities to include cover seamer strengths and upper and lower extremity pushing/pulling. Arm drift and leg drift were insignificant bilaterally. Patient is denying any current headache, nausea, vomiting, swallowing difficulty, chest pain, shortness of breath, or other complaints. He also tells us that she had an episode of vertigo in February 2024 for which she was seen in the emergency room. At that time it was also a TIA. She is followed by Dr. Linda Michel. He was in the midst of trying to get a referral to a neurologist with [facility] but Dr. Michel retired. She has an appointment with Dr. Michel on August 17 but were starting realize that she most likely will not make that appointment Meds/Allgy <Juvenal Amezcua - Last Filed: 08/15/24 17:50> Home Medications Ambulatory Orders Medication Instructions Recorded Confirmed amlodipine 5 mg tablet 5 mg PO DAILY #30 tabs 03/01/24 08/15/24 aspirin 81 mg chewable tablet 81 mg PO DAILY 08/15/24 08/15/24 Allergies Allergies Allergy/AdvReac Type Severity Reaction Status Date / Time codeine Allergy Unknown Verified 08/15/24 09:56 fentanyl Allergy Unknown Verified 08/15/24 09:56 Iodinated Contrast Media Allergy Anaphylaxis Verified 08/15/24 09:56 PFSH <Juvenal Amezcua - Last Filed: 08/15/24 17:50> Medical History Medical History (Updated 08/15/24 @ 17:58 by Amy Burrell MD) History of multiple miscarriages Acute dehydration on trip to [place] 6 yrs ago, airlifted off [facility] and hospitalized Vertigo Hypertension TIA (transient ischemic attack) Surgical History Surgical History (Updated 08/15/24 @ 17:57 by Amy Burrell MD) S/P cervical spinal fusion Family History Family History (Updated 08/15/24 @ 18:00 by Amy Burrell MD) Mother CAD (coronary artery disease) MVA (motor vehicle accident) Brother CAD (coronary artery disease) Father Multiple sclerosis MVA (motor vehicle accident) Brother MVA (motor vehicle accident) Social History Social History (Updated 08/15/24 @ 17:44 by Juvenal Amezcua) Smoking Status: Never smoker Second hand tobacco smoke exposure: No Do you dip or chew tobacco?: No Do you vape?: No Living arrangement: At home Marital Status: Living Condition: With spouse/s.o. Support Person: Yes Relationship: Spouse Physical Activity: Walking Level: Independent Do you feel safe in your home environment?: Yes Suffered physical, verbal, emotional, or financial abuse?: No History of Abuse: No ETOH Use: None and Wine Frequency: Weekly Substance Use: denies use POLST Patient has POLST: No <Amy Burrell MD - Last Filed: 08/15/24 18:04> POLST POLST Status: DNR Review of Systems <Juvenal Amezcua - Last Filed: 08/15/24 17:50> Status of ROS: See HPI Eyes Denies: Field loss, Vision loss or Change in vision Ears, nose, mouth, and throat Reports: Vertigo (Normal for patient); Denies: Ear pain, Change in hearing or Difficulty swallowing Cardiovascular Denies: Irregular heart rate, chest pain, palpitations, edema, swelling of feet/ankles or shortness of breath with exertion Respiratory Denies: Shortness of breath or Cough Gastrointestinal Denies: Abdominal pain, Abdominal distention, Nausea, Vomiting or Difficulty swallowing Musculoskeletal Reports: Other (Strength equal bilaterally, unable to determine if she is below baseline.); Denies: Extremity pain or Muscle pain Neurological Reports: Abnormal gait (Not observe in hospital but reported by family.), Lack of coordination, Vertigo (Normal for patient), Slurred speech and Difficulty communicating thoughts; Denies: Headache Hematologic/Lymphatic Denies: Anemia <Juvenal Amezcua - Last Filed: 08/15/24 17:50> Prior Level of Functionality: Patient was fully self sufficient and lived with her of 50+ years. She was reported to have no prior issues with level of function. Exam <Juvenal Amezcua - Last Filed: 08/15/24 17:50> Exam Patient is presenting with right facial droop following CVA confirmed by CT. Patient is currently in no obvious or acute distress. She is alert and aware of her surroundings and tracking appropriately. She is able to hold a conversation and follow commands despite mild aphasia. Strengths are equal bilaterally but unable to determine if she is at her baseline. Constitutional normal general appearance, no apparent distress and limitations noted [facility] normocephalic Neck/C-Spine visual inspection normal and trachea midline Lymph no lymphadenopathy noted Respiratory breath sounds equal bilaterally, normal respiratory effort, clear to auscultation bilaterally, no wheezes and no rales Cardiovascular normal heart rate noted, regular rhythm noted, no gallop, no rub, no murmur and no JVD Gastrointestinal abdomen normal to inspection, abdomen soft to palpation, nontender to palpation, nondistended and normoactive bowel sounds Back/Pelvis spine normal to inspection, no thoracic spine tenderness and lumbar spine ROM normal Extremities normal to inspection, normal to palpation, no tenderness and full ROM Neurology movement abnormality noted, no focal motor deficit noted, sensory deficit noted, gait abnormality noted, speech abnormality noted, coordination abnormality noted and no pronator drift noted NIH Stroke Score: Total 5 1. 0 2. 0 3. 0 4. 1 Minor facial droop noted. 5. 0 6. 0 7. 1 Difficulty/unable to perform heel to sow. 8. 0 9. 1 Mild aphasia. 10. 1 Mild slurring of words. 11. 1 Unable to articulate feeling when touching both lower extremities simultaneously. Psychiatry cooperative Unable to fully complete orientation status due to aphasia. Skin skin color normal, no rash, no lesions, no ecchymosis noted and no jaundice Conclusion/Plan <Juvenal Amezcua - Last Filed: 08/15/24 17:50> Problem List (1) Acute CVA (cerebrovascular accident): Plan: Based upon patient's last seen normal/symptom onset, she has been well outside the treatment window for antithrombolitics. Patient was adminstered routine post-stroke statin, plavix, aspirin. We have also ordered an MRI and cardiac echo with bubble study for further evaluation which should be completed tomorrow. Will continue to monitor patient and treat as indicated. Patient will also [facility] and snf care needs. (2) DNR (do not resuscitate) discussion: Plan: DNR planning was discussed with the and son. states the plan is to have a DNR order. POLST form should be completed and signed tomorrow. (3) Hypertension: Lab Results Lab results reviewed: Yes 08/15/24 08:58 08/15/24 08:58 Diagnostic Imaging Results Diagnostic Imaging Results: positive See rad report EKG Results EKG Interpreted Independently: Yes <Amy Burrell MD - Last Filed: 08/15/24 18:04> Problem List (1) Acute CVA (cerebrovascular accident): (2) DNR (do not resuscitate) discussion: (3) Hypertension: Plan: Her medications are amlodipine 5 mg daily. If this is an acute stroke we would be allowing permissive hypertension for the first 48 to 72 hours. She is 5 days beyond the window. I am resuming her usual home meds and aiming for a goal of less than 140/90. Core Measures <Amy Burrell MD - Last Filed: 08/15/24 18:04> Anticipated LOS I expect patient to be DC'd or transferred within 96 hours.: Yes DVT/VTE - Prophylaxis VTE/DVT Device ordered at admit?: Yes Stroke - Rehab Assessment Rehab services assessment to be ordered?: Yes
[2024-08-15] MEDS: amLODIPine 5 MG TABLET PO SCH (14:41)
[2024-08-15] MEDS ORDERED: diphenhydrAMINE INJ 50 MG/ML VIAL IVP ONE (16:00)
[2024-08-15] MEDS ORDERED: DEXAMETHASONE 4 MG/ML VIAL IVP SCH ×2 (16:00→17:30)
[2024-08-15] MEDS: SODIUM CHLORIDE FLUSH 0.9% 10 ML SYRINGE IVP SCH (17:27)
--- NOTE | 2024-08-15 18:30 | ADVANCE CARE PLANNING NOTE ---
Advance Care Planning Planning Encounter Date: 08/15/24 Time: 17:00 Purpose: Establish care goals and CODE STATUS Parties in Attendance: Son, , jhoan PA student, hospitalist Decisional Capacity of the Patient: Unable to participate due to her stroke. She is confused, lethargic, with verbal apraxia Diagnosis for Encounter (1) Acute CVA (cerebrovascular accident): Summary: She had a TIA in February of this year. was trying to get her into see a neurologist through their primary care provider. However her primary care provider retired before he can get the referral. Due to see the new primary care provider on August 17 Encounter Subjective/Patient's Story: Is from [place]. Been to her for 57 years. She was a [id number] mom. Had multiple miscarriages and finally was able to conceive 1 son and carry him to term. 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 His last job was for the [employer]. He then suffered a subdural hematoma that needed bur holes. That was about 10 or 11 years ago. He decided to retire to enjoy his life, and they moved to [facility]. They have been very happy here. Both son and regard mom is "healthy". She is active. Drives. Gardens. Cleans house. Is a phenomenal cook. She takes blood pressure medicine. But is otherwise healthy. She does not have any chronic pain problems. Even with her history of C-spine fusion, she does well. She had an episode of vertigo that was diagnosed as a TIA in February of this year. Seen in the ER and sent home. has been struggling to get into see Dr. Michel for the follow-up. Echocardiogram was ordered but the patient never followed through. They have never discussed CODE STATUS. They have not filled out a POLST form. But within the family they have had conversations were they know that if she were to not have a pulse or pressure, she would not want to be resuscitated. Especially if she is disabled as she is now. Currently her disability is severe enough that he would not be able to take her home. So he hopes for her to get rehab, and then get strong enough to get back home. When I asked him [place] and dad requested the [place]. If she is not able to be rehabbed, to live independently again, they will have to start the conversation about what the future holds. Objective/Medical Story: Patient is a 78 year old female being admitted from the ER for CVA with symptoms that are reported to have started Friday. In speaking with the patient's , he first noticed slight confusion in the form of expressive aphasia which began on Friday. He reports she was still coherent and functional to a point that did not prompt any immediate alarm. Then on Friday or , he noticed she began to be a little more unsteady when walking. He was concerned with insurance coverage and, due to the patient's history, tried making an appointment with a vascular specialist. Overall he felt the symptoms were progressing very slowing and she still retained a lot of function that did not indicate an obvious stroke, so he did not feel 911 was appropriate or necessary. He continues stating that Friday night, no immediate changes were noted, she was able to eat, take her medications, and otherwise function with the only symptoms being the persistent confusion and unsteadiness. This morning, he states he went to wake her up and noticed significant acute changes prompting him to call 911. Throughout the week, he states the patient never complained of nausea or vomiting. He does note she had a headache, however this is a chronic issue she deals with and she never indicated it was worse than normal. No other signs or symptoms were reported. Patient is currently presenting with minor expressive aphasia stating she is having difficulty putting some thoughts into words. Unable to fully asses mental status, possibly due to aphasia. Communicating is noticeably easier when asking direct yes/no questions, but she can still have basic conversations. She is able to identify objects presented to her and appropriately follow commands. Right sided facial droop observed and confirmed by family members. No obvious strength differences noted between extremities to include nozzle worker strengths and upper and lower extremity pushing/pulling. Arm drift and leg drift were insignificant kavin aterally. Patient is denying any current headache, nausea, vomiting, swallowing difficulty, chest pain, shortness of breath, or other complaints. He also tells us that she had an episode of vertigo in February 2024 for which she was seen in the emergency room. At that time it was also a TIA. She is followed by Dr. Linda Michel. He was in the midst of trying to get a referral to a neurologist with [facility] but Dr. Michel retired. She has an appointment with Dr. Michel on August 17 but were starting realize that she most likely will not make that appointment Goals of Care: Rehab to make her strong enough to get back home and independent Plan: 1. Tomorrow will be an MRI and echo 2. POLST form will be filled out 3. and [facility] [place] [facility] but they prefer to keep the patient here for [facility] Code Status: Do Not Attempt Resuscitation Time spent on advance care plannin minutes
[2024-08-16] MEDS: ASPIRIN CHEW 81 MG TABLET PO SCH (06:31)
[2024-08-16] MEDS ORDERED: GADOTERATE MEGLUMINE 10 MMOL/20 ML VIAL ONE (09:30)
[2024-08-16] MEDS: CLOPIDOGREL 75 MG TABLET PO SCH (09:49)
--- NOTE | 2024-08-16 10:14 | PROVIDER PROGRESS NOTE ---
Subjective Prog Note Date Prog Note Date: 08/16/24 Prog Note Time: 10:11 Subjective Pt reports feeling: Improved Subjective: Yesterday she is very lethargic. Able to cooperate with physical exam and answer questions. Thank you moderate psychomotor slowing. This morning she is sitting up in bed. Speech is still delayed. But she and her are bantering. She wants to go home right now and has a very strong personality. Her I have explained why she cannot go home yet. She denies palpitations, chest pain, shortness of breath. Feels like "I am back to normal" and is looking at me suspiciously when I told her that she really is not back to normal yet with speech, balance. Current Medications Current Medications Current Medications: Current Medications Generic Name Dose Route Start Last Admin Trade Name Freq PRN Reason Stop Dose Admin Acetaminophen 650 mg 08/15/24 13:27 Acetaminophen 325 Mg Tablet PO Q4HR PRN Pain 1 to 4, or Fever Amlodipine Besylate 5 mg 08/15/24 11:57 08/16/24 08:53 Amlodipine 5 Mg Tablet PO 5 mg DAILY DAMIEN Administration Aspirin 81 mg 08/16/24 07:00 08/16/24 06:31 Aspirin Chew 81 Mg Tablet PO 81 mg DAILY DAMIEN Administration Atorvastatin Calcium 40 mg 08/16/24 10:10 Atorvastatin 40 Mg Tablet PO QPM [facility] Clopidogrel Bisulfate 75 mg 08/16/24 09:00 08/16/24 09:49 Clopidogrel 75 Mg Tablet PO 75 mg DAILY DAMIEN Administration Ondansetron HCl 4 mg 08/15/24 13:27 Ondansetron Odt 4 Mg Tablet TL Q6HR PRN Nausea / Vomiting Ondansetron HCl 4 mg 08/15/24 13:27 Ondansetron 4 Mg/2 Ml Vial IVP Q6HR PRN Nausea / Vomiting Oxycodone HCl 5 mg 08/15/24 13:27 Oxycodone 5 Mg Tablet PO Q4HR PRN Pain 5 to 7 Sodium Chloride 10 ml 08/15/24 13:27 Sodium Chloride Flush 0.9% 10 Ml Syringe IVP PRN PRN NEEDED PER PROVIDER ORDERS Sodium Chloride 10 ml 08/15/24 17:00 08/16/24 08:56 Sodium Chloride Flush 0.9% 10 Ml Syringe IVP 10 ml 0100,0900,1700 DAMIEN Administration Objective Vital Signs/Intake & Output Reviewed Vital Signs: Yes Vital Signs: Vital Signs x48h Temp Pulse Pulse Resp BP Pulse Ox 08/16/24 08:20 36.5 C 74 18 115/57 L 97 08/16/24 04:55 36.4 C L 52 L 16 150/74 H 98 Intake & Output: Intake & Output 08/14/24 08/15/24 08/16/24 08/17/24 05:59 05:59 05:59 05:59 Intake Total 520 / 520 340 / 340 Output Total 900 / 900 1200 / 1200 Balance -380 / -380 -860 / -860 Weight (kg) 67 kg Objective General Appearance: positive No acute distress, Alert and Other (Well-nourished, well-developed, pleasant white female who looks younger than stated age) Eyes Bilateral: positive Normal inspection, PERRL and EOMI ENT: positive No signs of dehydration Neck: positive Thyroid nml and No JVD Respiratory: positive Chest non-tender, No respiratory distress and Breath sounds nml Cardiovascular: positive Regular rate & rhythm and No murmur Abdomen: positive Non-tender, No organomegaly and Nml bowel sounds Skin: positive Warm and Dry Extremities: positive Non-tender, Full ROM and Nml appearance Neurologic/Psychiatric: positive Disoriented to place, Slurred/abnml speech and Other (Still with minor facial droop. Difficulty with speech and cannot do [id number]. Difficulty with word finding. Slurring of speech. But follows commands. Able to converse and indicate her desires. Really wants to go home.); negative CN's nml (2-12) or Motor nml (Although she has a slight left facial droop, her strength is equal in arms and legs. Weak, not really able to close really hard on my fingers, but symmetrical.) Lab Results 08/15/24 08:58 08/15/24 08:58 Assessment/Plan Problem List (1) Acute CVA (cerebrovascular accident): Impression: She has had a TIA in the past. Was in the midst of slowly getting a workup for that but that was caught up in the midst of her primary care provider retiring. So even though she had orders in hand, the patient felt that it was not worth getting the testing done because "what is the point?" If the primary care provider was retiring and she was going to have to find a new letter. Now with completed stroke. Most likely happened on August 10 by history. Progressed during the week until the finally brought her in due to lack of responsiveness and neurological deficit. Her head CT has subacute infarcts in the right caudate and surrounding white matter. No hemorrhagic conversion or mass effect. Moderate atrophy and chronic white matter disease changes. We cannot get a regular CT angiogram because of her allergy to iodinated contrast so I have ordered an MRI angiogram of brain and neck for today. Her carotid Doppler did not have significant internal carotid disease. Intervertebral arteries were open. Plan: Still with deficit that needs to be evaluated by PT and OT. Change from observation status to inpatient status since she will remain another day. Started her on aspirin and Plavix yesterday. She will need to be on the combination for 21 days and then her primary care provider will need to de- escalate to 1 or the other. Modification of blood pressure is currently stable. She presented as a blood pressure of 189 systolic to 199 systolic yesterday. Today she is 150/74, 145/86. That is acceptable in the face of a recent stroke. I will continue her amlodipine. I will also add a statin to complete medical management Disposition: Until PT and OT evaluate her, unclear if this patient is going to go to SNF for rehab or transfer to inpatient rehab. I think she would have excellent results with inpatient rehab considering her deficits could rapidly improve. is enthusiastic about that idea, patient left so but she is reluctantly agreeing to cooperate (2) Hypertension: Impression: As above. On amlodipine. Yesterday quite hypertensive. Since she is out of the 48 to 72-hour window of permissive hypertension, I am aiming for a normal blood pressure. (3) DNR (do not resuscitate) discussion: Impression: We reiterated the CODE STATUS from yesterday's discussion on admission. Patient still wishes to proceed forward with filling out a POLST form where she is DO NOT RESUSCITATE. She would like to discuss possible temporary tube feedings or any type of feedings that are artificial if the case arises. But she is leaning towards no temporary feeding. She reiterates that her will be her DPCORKY. And if her is not available it should be her son Igor.
--- NOTE | 2024-08-16 10:31 | PHARMACY PROGRESS NOTE ---
Best Possible Medication History Admit Date and Time: 08/16/24 [id number] Home Medications Medication Instructions Recorded Confirmed Type aspirin 81 mg chewable tablet 81 mg PO DAILY 08/15/24 08/15/24 History amlodipine 2.5 mg tablet 2.5 mg PO DAILY 08/16/24 08/16/24 History Processed by: Pharmacy Medications reviewed in ED?: No Medication History completed: Yes Patient Interview: Completed (BY DENTAL DIRECTORELLIS) Secondary Source(s): Spouse/Significant other and Insurance records [facility] Statement: As the person ultimately responsible for medication therapy, providers are able to order a medication from an existing home medication list in [facility] via the "Reconcile Routine" prior to Confirmation of that medication by senior safety support manager. Such practice is discouraged except when the physician, in their clinical judgment, deems that a medical need exists for a medication without regard to previous use.
[2024-08-16] MEDS: ATORVASTATIN 40 MG TABLET PO SCH (10:58)
[2024-08-16] MEDS: GADOTERATE MEGLUMINE 10 MMOL/20 ML VIAL IVP ONE (16:26)
--- NOTE | 2024-08-16 16:54 | MRI Report ---
PROCEDURE: MRI Brain W/WO INDICATIONS: STROKE CONTRAST: clariscan 13.4ml TECHNIQUE: Noncontrast axial T1 spin echo, axial T2 fast spin echo, sagittal and axial FLAIR, coronal T2 fast sp in echo, axial gradient echo, axial diffusion and ADC through the brain. After the administration of contrast, axial and coronal T1 spin echo with fat saturation through the brain. COMPARISON: MRI brain without contrast 02/16/2024, CT head without contrast 03/28/2024 and 08/15/2024, MRI brain FINDINGS: Image quality: Excellent. CSF spaces: Basal cisterns are patent. No extra-axial fluid collections. Ventricles are normal in size and shape. Brain: No midline shift. No intracranial bleeds or masses. No abnormal intracranial enhancement. There is cerebral volume loss for age. There is periventricular white matter chronic small vessel is chemic change. The brainstem appears normal. Abnormal diffusion restriction is present within the le ft body of the caudate nucleus (9/15; 12/15; 13/15) with corresponding small, stippled foci of enhanc ement (14/103). Multiple, small dilated perivascular spaces are present at the level of the basal kvng glia (9/13). Additional hippocampal sulcus cysts are also present (9/11). Normal intravascular flow voids are present. Skull and face: Calvarial marrow is normal in signal. Orbits appear normal. Sinuses: Sinuses and mastoids appear clear. IMPRESSION: Subacute stroke in the left body of the caudate nucleus. No abnormal enhancement. No mass effect. Reviewed by: Gilmer Bates MD on 08/16/2024 4:52 PM PST Approved by: Gilmer Bates MD on 08/16/2024 4:52 PM PST Station ID: [id number]
--- NOTE | 2024-08-16 18:48 | MRI Report ---
PROCEDURE: MRI Angio Neck W/WO INDICATIONS: stroke TECHNIQUE: Coronal dynamic MR angiogram was obtained after intravenous contrast administration. 3-D MIP volume rendering was constructed from subtraction images. COMPARISON: None. FINDINGS: Internal carotid arteries: Unremarkable. No significant stenosis. No dissection or occlusion. Common carotid arteries: Unremarkable. No significant stenosis. No dissection or occlusion. External carotid arteries: Unremarkable. No occlusion. Vertebral arteries: Unremarkable. No significant stenosis. No dissection or occlusion. Aortic Arch and Mediastinum: Partially visualized aortic arch is unremarkable without evidence of ane urysm. Origins of the great vessels are unremarkable. Bilateral subclavian arteries are also unremark able. IMPRESSION: Unremarkable MR angiogram of the carotid and vertebral arteries in the neck Reviewed by: Johnny Diaz MD on 08/16/2024 5:46 PM AKST Approved by: Johnny Diaz MD on 08/16/2024 5:46 PM AKST Station ID: [id number]
--- NOTE | 2024-08-16 18:51 | MRI Report ---
PROCEDURE: MRI Angio Head WO INDICATIONS: stroke TECHNIQUE: Gmie-vy-kugybl 3-D MR angiogram of the brain was obtained without contrast and 3-dimension al maximum intensity projection (MIP) volume rendering was constructed. COMPARISON: None. FINDINGS: Internal carotid arteries: No acute findings. Intracranial ICA are patent with no significant steno sis. No occlusion. No aneurysm. Anterior cerebral arteries: Unremarkable. No significant stenosis. No occlusion. No aneurysm. Middle cerebral arteries: Unremarkable. No significant stenosis. No occlusion. No aneurysm. Posterior cerebral arteries: Unremarkable. No significant stenosis. No occlusion. No aneurysm. Basilar artery: Unremarkable. No significant stenosis. No occlusion. No aneurysm. Vertebral arteries: Unremarkable as visualized. Other: Visualized portions of the brain unremarkable. IMPRESSION: Normal MR angiogram of the brain Reviewed by: Johnny Diaz MD on 08/16/2024 5:50 PM AK Approved by: Johnny Diaz MD on 08/16/2024 5:50 PM [facility] Station ID: [id number]
[2024-08-17] MEDS: DOCUSATE SODIUM 250 MG CAPSULE PO SCH (08:53)
[2024-08-17] MEDS: polyethylene glycoL 3350 17 GM PACKET PO SCH (08:55)
--- NOTE | 2024-08-17 11:20 | PROVIDER PROGRESS NOTE ---
Subjective Prog Note Date Prog Note Date: 08/17/24 Prog Note Time: 11:09 Subjective Pt reports feeling: Improved Subjective: This patient is a very pleasant lady who keeps on insisting there is nothing wrong with her and she wants to go home. Yesterday she was evaluated by PT and OT and she was found to be confused. She had the brushing her hand and could not remember what it was for. She has flashes of lucidity and will remember time and make jokes about it appropriately. But then cannot remember that she met me, or who I am. No focal deficits but definite cognitive and cerebellar problems. Blood pressure is mildly elevated but no chest pain, palpitations, shortness of breath. [id number], in the room. Both of them were updated on her workup and progress. Current Medications Current Medications Current Medications: Current Medications Generic Name Dose Route Start Last Admin Trade Name Freq PRN Reason Stop Dose Admin Acetaminophen 650 mg 08/15/24 13:27 Acetaminophen 325 Mg Tablet PO Q4HR PRN Pain 1 to 4, or Fever Amlodipine Besylate 5 mg 08/15/24 11:57 08/17/24 08:53 Amlodipine 5 Mg Tablet PO 5 mg DAILY DAMIEN Administration Aspirin 81 mg 08/16/24 07:00 08/17/24 08:53 Aspirin Chew 81 Mg Tablet PO 81 mg DAILY DAMIEN Administration Atorvastatin Calcium 40 mg 08/16/24 10:10 08/16/24 20:40 Atorvastatin 40 Mg Tablet PO 40 mg QPM DAMIEN Administration Clopidogrel Bisulfate 75 mg 08/16/24 09:00 08/17/24 08:53 Clopidogrel 75 Mg Tablet PO 75 mg DAILY DAMIEN Administration Docusate Sodium 250 - 500 mg 08/17/24 09:00 08/17/24 08:53 Docusate Sodium 250 Mg Capsule PO 250 mg DAILY DAMIEN Administration Ondansetron HCl 4 mg 08/15/24 13:27 Ondansetron Odt 4 Mg Tablet TL Q6HR PRN Nausea / Vomiting Ondansetron HCl 4 mg 08/15/24 13:27 Ondansetron 4 Mg/2 Ml Vial IVP Q6HR PRN Nausea / Vomiting Oxycodone HCl 5 mg 08/15/24 13:27 Oxycodone 5 Mg Tablet PO Q4HR PRN Pain 5 to 7 Polyethylene Glycol 17 gm 08/17/24 09:00 08/17/24 08:55 Polyethylene Glycol 3350 17 Gm Packet PO 17 gm DAILY DAMIEN Administration Sodium Chloride 10 ml 08/15/24 13:27 Sodium Chloride Flush 0.9% 10 Ml Syringe IVP PRN PRN NEEDED PER PROVIDER ORDERS Sodium Chloride 10 ml 08/15/24 17:00 08/17/24 08:55 Sodium Chloride Flush 0.9% 10 Ml Syringe IVP 10 ml 0100,0900,1700 DAMIEN Administration Objective Vital Signs/Intake & Output Reviewed Vital Signs: Yes Vital Signs: Vital Signs x48h Temp Pulse Resp BP Pulse Ox 08/17/24 07:41 36.4 C L 74 18 149/84 H 95 Intake & Output: Intake & Output 08/15/24 08/16/24 08/17/24 08/18/24 05:59 05:59 05:59 05:59 Intake Total 520 / 520 1220 / 1220 270 / 270 Output Total 900 / 900 1200 / 1200 Balance -380 / -380 270 / 270 Weight (kg) 67 kg Objective General Appearance: positive No acute distress, Alert and Other (Well-groomed, well-nourished 78-year-old female who looks stated age. 5 foot 4 inches tall, 67 kg.) Eyes Bilateral: positive PERRL and EOMI ENT: positive No signs of dehydration Neck: positive Nml inspection, Thyroid nml and No JVD; negative Stiff neck or Carotid bruit Respiratory: positive No respiratory distress and Breath sounds nml Cardiovascular: positive Regular rate & rhythm, No murmur and No gallop Abdomen: positive Non-tender, No organomegaly and Nml bowel sounds Skin: positive Warm and Dry Extremities: positive Non-tender, Full ROM and Nml appearance Neurologic/Psychiatric: positive Disoriented to place (Not consistently. Sometimes she knows she is in the hospital, sometimes she thinks she is at a hotel or the library), Disoriented to time and Slurred/abnml speech (Occasionally names things incorrectly. Speech is not slurred but a delay in response); negative Motor nml (Finger-nose cannot be done. But she sways and is going to fall. Facial droop has resolved. I am not seeing unilateral loss of strength. Both hands have loss of handgrip but they do close on my fingers.) Lab Results 08/15/24 08:58 08/15/24 08:58 Assessment/Plan Problem List (1) Acute CVA (cerebrovascular accident): Impression: She has had a TIA in the past. Was in the midst of slowly getting a workup for that but that was caught up in the midst of her primary care provider retiring. So even though she had orders in hand, the patient felt that it was not worth getting the testing done because "what is the point?" If the primary care provider was retiring and she was going to have to find a new provider. Now with completed stroke. Most likely happened on August 10 by history. Progressed during the week until the finally brought her in due to lack of responsiveness and neurological deficit. Her head CT has subacute infarcts in the right caudate and surrounding white matter. No hemorrhagic conversion or mass effect. Moderate atrophy and chronic white matter disease changes. We cannot get a regular CT angiogram because of her allergy to iodinated contrast so I ordered an MRI angiogram of brain and neck. The MRI of the brain shows subacute stroke in the left body of the caudate nucleus. No mass effect, no abnormal enhancement. The angiogram of head and neck has unremarkable arteries.The echocardiogram has hyperdynamic ejection fraction of 70%. Right ventricle and systolic function are normal. Suboptimal bubble study. No concerning valvular disease noted. No PFO or ASD. Tree has been sinus rhythm. Her carotid Doppler did not have significant internal carotid disease. Intervertebral arteries were open. PT and OT have seen her. They feel that she would be a candidate for an inpatient rehab unit. Plan: Continue Plavix and aspirin for platelet inhibition Continue amlodipine 5 mg for blood pressure control. In the next day I may increase her to 10 mg a day since today's blood pressure is 149/84 Our case management office will reach out to her insurance company and see if we get authorization for inpatient rehab. and family would prefer to go to inpatient rehab at [place] since son lives in [place]. (2) Hypertension: Impression: As above. On amlodipine. 08/15 quite hypertensive. Since she is out of the 48 to 72-hour window of permissive hypertension, I am aiming for a normal blood pressure. Today 149/84. Will increase to 10 mg of amlodipine in the morning. (3) DNR (do not resuscitate) discussion: Impression: 11/18/24 I reiterated the CODE STATUS from discussion on admission. Patient still wishes to proceed forward with filling out a POLST form where she is DO NOT RESUSCITATE. If the need would arise, she would like to discuss possible temporary tube feedings or any type of feedings that are artificial if the case arises. But she is leaning towards no temporary feeding. She reiterates that her will be her ADEN. And if her is not available it should be her son Igor. POLST form filled out. Patient signed it and copy given to our [employer] FILE CLERK for medical records. The original form given to her .
--- NOTE | 2024-08-17 16:43 | PT Plan of Care ---
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 HISTORY Medical History (Updated 08/15/24 @ 17:58 by Amy Burrell MD) History of multiple miscarriages Acute dehydration on trip to [place] 6 yrs ago, airlifted off [place] and hospitalized Vertigo Hypertension TIA (transient ischemic attack) Surgical History (Updated 08/15/24 @ 17:57 by Amy Burrell MD) S/P cervical spinal fusion BALANCE/FUNCTIONAL RESULTS Sitting Balance: Good Standing Balance: Fair Tinetti Composite Score (Balance + Gait): 19 Tinetti Assessment Interpretation: Moderate Fall Risk ASSESSMENT Assessment: Pt is a pleasant 78yo F referred for PT eval s/p CVA with expressive aphasia and incoordination. Pt is indep at baseline including regular gardening, walking, and driving. Pt lives with spouse and has an adult son nearby in [facility]. Upon PT eval, pt is able to follow 3-4 step cues and easily directable but demonstrates difficulty with problem solving and complex or abstract ideas. Speech is intelligible but nonsensical. Positive orthostatics upon initial standing but pt denies symptoms and after rest break, amb 30' w/ FWW and minAx1-2. After activity BP recovers to 135/81, HR mildly elevated at 105bpm. Gait pattern with mild ataxia, narrow MELVA and requires maxA for pathfinding, modA for walker mgmt. Pt is able to assist with ADLs but is unable to plan, sequence, and execute tasks including hair brushing. Moderate fall risk per Tinetti score of 19/28. Given above impairments, pt will benefit from skilled PT to improve balance, safety, coordination, and gait pattern. When medically clear, PT rec dc to [facility] as pt has good rehab potential, need for all 3 disciplines, and was indep at baseline. Pt is able to participate in 3hrs daily rehab required at [facility]. GOALS Improve supine to sit to:: Independent Improve sit to stand to:: Standby Assist Improve pivot transfer ability to:: Standby Assist Improve sit to supine to:: Standby Assist Improve gait ability to:: CGA Advance Assistive Device to:: Front Wheeled Walker and Single Point Cane Increase distance walked to (in feet):: 100 Other gait goal:: normalized MELVA, equivalent stride length, no LOB upon turning PLAN Frequency: 1-2x/day Duration: Until discharge DISCHARGE RECOMMENDATIONS Discharge Location: IRF Support/Services Needed: With assist Other Discharge Equipment: tbd at IRF Transport Needs at Discharge: BLS vs wc van Other: medical transport/BLS ideal for long distances d/t expressive aphasia, unable to self-advocate for needs
[2024-08-18 06:04] LABS: CHOLESTEROL 180 mg/dL; HDL CHOLESTEROL 45 mg/dL; LDL CHOLESTEROL,CALCULATED 118 mg/dL; LDL/HDL RATIO 2.6 (<4.4); TRIGLYCERIDES 85 mg/dL; VLDL CHOLESTEROL 17 mg/dL
[2024-08-18 14:20] LABS: ESTIMATED AVERAGE GLUCOSE 126 mg/dL (70-100)
--- NOTE | 2024-08-18 15:20 | PROVIDER PROGRESS NOTE ---
Subjective Prog Note Date Prog Note Date: 08/18/24 Prog Note Time: 15:17 Subjective Pt reports feeling: No change Subjective: . Cooperative. Still with word finding difficulties, thought process lucidity. But no focal deficits. Still awaiting insurance authorization Current Medications Current Medications Current Medications: Current Medications Generic Name Dose Route Start Last Admin Trade Name Freq PRN Reason Stop Dose Admin Acetaminophen 650 mg 08/15/24 13:27 Acetaminophen 325 Mg Tablet PO Q4HR PRN Pain 1 to 4, or Fever Amlodipine Besylate 5 mg 08/15/24 11:57 08/18/24 08:27 Amlodipine 5 Mg Tablet PO 5 mg DAILY DAMIEN Administration Aspirin 81 mg 08/16/24 07:00 08/18/24 08:27 Aspirin Chew 81 Mg Tablet PO 81 mg DAILY DAMIEN Administration Atorvastatin Calcium 40 mg 08/16/24 10:10 08/17/24 20:42 Atorvastatin 40 Mg Tablet PO 40 mg QPM DAMIEN Administration Clopidogrel Bisulfate 75 mg 08/16/24 09:00 08/18/24 08:27 Clopidogrel 75 Mg Tablet PO 75 mg DAILY DAMIEN Administration Docusate Sodium 250 - 500 mg 08/17/24 09:00 08/18/24 08:27 Docusate Sodium 250 Mg Capsule PO 250 mg DAILY DAMIEN Administration Ondansetron HCl 4 mg 08/15/24 13:27 Ondansetron Odt 4 Mg Tablet TL Q6HR PRN Nausea / Vomiting Ondansetron HCl 4 mg 08/15/24 13:27 Ondansetron 4 Mg/2 Ml Vial IVP Q6HR PRN Nausea / Vomiting Oxycodone HCl 5 mg 08/15/24 13:27 Oxycodone 5 Mg Tablet PO Q4HR PRN Pain 5 to 7 Polyethylene Glycol 17 gm 08/17/24 09:00 08/18/24 08:30 Polyethylene Glycol 3350 17 Gm Packet PO 17 gm DAILY DAMIEN Administration Sodium Chloride 10 ml 08/15/24 13:27 Sodium Chloride Flush 0.9% 10 Ml Syringe IVP PRN PRN NEEDED PER PROVIDER ORDERS Sodium Chloride 10 ml 08/15/24 17:00 08/18/24 08:28 Sodium Chloride Flush 0.9% 10 Ml Syringe IVP 10 ml 0100,0900,1700 DAMIEN Administration Objective Vital Signs/Intake & Output Reviewed Vital Signs: Yes Vital Signs: Vital Signs x48h Temp Pulse Resp BP Pulse Ox 08/18/24 08:39 36.6 C 67 16 150/76 H 95 Intake & Output: Intake & Output 08/16/24 08/17/24 08/18/24 08/19/24 05:59 05:59 05:59 05:59 Intake Total 520 / 520 1220 / 1220 940 / 940 400 / 400 Output Total 900 / 900 1200 / 1200 800 / 800 Balance -380 / -380 940 / 940 -400 / -400 Weight (kg) 67 kg Objective General Appearance: positive No acute distress and Alert ENT: positive ENT inspection nml and No signs of dehydration Neck: positive Thyroid nml and No JVD; negative Stiff neck or Carotid bruit Respiratory: positive No respiratory distress and Breath sounds nml Cardiovascular: positive Regular rate & rhythm, No murmur and No gallop Abdomen: positive Non-tender, No organomegaly and Nml bowel sounds Rectal: positive Non-tender, Stool - heme NEG and Stool - heme POS Extremities: positive Non-tender, Full ROM and Nml appearance Neurologic/Psychiatric: positive CN's nml (2-12), Mood/affect nml, Disoriented to time and Slurred/abnml speech; negative Motor nml (Mild cerebellar myisbo-eo-tnle dysfunction and npmh-su-lobw dysfunction. Both legs) Lab Results 08/15/24 08:58 08/15/24 08:58 Other Labs: Lab Results x24hrs 08/18/24 Range/Units 05:20 Estimat Average Glucose 126 H (70-100) mg/dL Hemoglobin A1c % 6.0 (4.27-6.07) % Triglycerides 85 mg/dL Cholesterol 180 ( - 200) mg/dL LDL Cholesterol, Calc 118 ( - 129) mg/dL VLDL Cholesterol 17 mg/dL HDL Cholesterol 45 L (60 - ) mg/dL LDL/HDL Ratio 2.6 (<4.4) Cholesterol/HDL Ratio 4.0 (<4.4) Assessment/Plan Problem List (1) Acute CVA (cerebrovascular accident): Impression: She has had a TIA in the past. Was in the midst of slowly getting a workup for that but that was caught up in the midst of her primary care provider retiring. So even though she had orders in hand, the patient felt that it was not worth getting the testing done because "what is the point?" If the primary care provider was retiring and she was going to have to find a new provider. Now with completed stroke. Most likely happened on August 10 by history. Progressed during the week until the finally brought her in due to lack of responsiveness and neurological deficit. Her head CT has subacute infarcts in the right caudate and surrounding white matter. No hemorrhagic conversion or mass effect. Moderate atrophy and chronic white matter disease changes. We cannot get a regular CT angiogram because of her allergy to iodinated contrast so I ordered an MRI angiogram of brain and neck. The MRI of the brain shows subacute stroke in the left body of the caudate nucleus. No mass effect, no abnormal enhancement. The angiogram of head and neck has unremarkable arteries.The echocardiogram has hyperdynamic ejection fraction of 70%. Right ventricle and systolic function are normal. Suboptimal bubble study. No concerning valvular disease noted. No PFO or ASD. Tree has been sinus rhythm. Her carotid Doppler did not have significant internal carotid disease. Intervertebral arteries were open. PT and OT have seen her. They feel that she would be a candidate for an inpatient rehab unit. Plan: Today's avoidable day #2. She was medically stable on the in the afternoon. Continue Plavix and aspirin for platelet inhibition Our case management office will reach out to her insurance company and see if we get authorization for inpatient rehab. and family would prefer to go to inpatient rehab at [place] since son lives in [place]. We have reached out yesterday and today and are still awaiting authorization. (2) Hypertension: Impression: As above. On amlodipine. 08/15 quite hypertensive. Since she is out of the 48 to 72-hour window of permissive hypertension, I am aiming for a normal blood pressure. Today 150/76. I will increase her amlodipine to 10 mg daily. (3) DNR (do not resuscitate) discussion: Impression: 08/16/24 I reiterated the CODE STATUS from discussion on admission. Patient still wishes to proceed forward with filling out a POLST form where she is DO NOT RESUSCITATE. If the need would arise, she would like to discuss possible temporary tube feedings or any type of feedings that are artificial if the case arises. But she is leaning towards no temporary feeding. She reiterates that her will be her DPOA. And if her is not available it should be her son Igor. POLST form filled out. Patient signed it and copy given to our [facility] for medical records. The original form given to her .
[2024-08-18] MEDS: amLODIPine 5 MG TABLET PO STA (15:48)
[2024-08-19] MEDS: SENNA 8.6 MG TABLET PO SCH (08:06)
[2024-08-19] MEDS: amLODIPine 5 MG TABLET PO SCH (08:06)
--- NOTE | 2024-08-19 12:05 | PROVIDER PROGRESS NOTE ---
Documented by User: Juvenal Amezcua 08/19/24 12:32 Subjective Prog Note Date Prog Note Date: 08/19/24 Prog Note Time: 12:00 Subjective Pt reports feeling: Improved Subjective: Patient is remarkably better since being admitted. Denies any pain, nausea, vomiting, weakness, headache, or other complaints. Cognition has improved but still presents with minor deficits. Despite minor difficulty, patient is able to maintain conversations and follow commands and seems motivated to working toward overcoming her current situation. She has an excellent support network with her and son. Current Medications Current Medications Current Medications: Current Medications Generic Name Dose Route Start Last Admin Trade Name Freq PRN Reason Stop Dose Admin Acetaminophen 650 mg 08/15/24 13:27 Acetaminophen 325 Mg Tablet PO Q4HR PRN Pain 1 to 4, or Fever Amlodipine Besylate 10 mg 08/19/24 09:00 08/19/24 08:06 Amlodipine 5 Mg Tablet PO 10 mg DAILY DAMIEN Administration Aspirin 81 mg 08/16/24 07:00 08/19/24 08:06 Aspirin Chew 81 Mg Tablet PO 81 mg DAILY DAMIEN Administration Atorvastatin Calcium 40 mg 08/16/24 10:10 08/18/24 21:18 Atorvastatin 40 Mg Tablet PO 40 mg QPM DAMIEN Administration Clopidogrel Bisulfate 75 mg 08/16/24 09:00 08/19/24 08:06 Clopidogrel 75 Mg Tablet PO 75 mg DAILY DAMIEN Administration Docusate Sodium 250 - 500 mg 08/17/24 09:00 08/19/24 08:06 Docusate Sodium 250 Mg Capsule PO 250 mg DAILY DAMIEN Administration Ondansetron HCl 4 mg 08/15/24 13:27 Ondansetron Odt 4 Mg Tablet TL Q6HR PRN Nausea / Vomiting Ondansetron HCl 4 mg 08/15/24 13:27 Ondansetron 4 Mg/2 Ml Vial IVP Q6HR PRN Nausea / Vomiting Oxycodone HCl 5 mg 08/15/24 13:27 Oxycodone 5 Mg Tablet PO Q4HR PRN Pain 5 to 7 Polyethylene Glycol 17 gm 08/17/24 09:00 08/19/24 08:06 Polyethylene Glycol 3350 17 Gm Packet PO 17 gm DAILY DAMIEN Administration Senna 8.6 - 17.2 mg 08/19/24 09:00 08/19/24 08:06 Senna 8.6 Mg Tablet PO 17.2 mg DAILY DAMIEN Administration Sodium Chloride 10 ml 08/15/24 13:27 Sodium Chloride Flush 0.9% 10 Ml Syringe IVP PRN PRN NEEDED PER PROVIDER ORDERS Sodium Chloride 10 ml 08/15/24 17:00 08/19/24 08:07 Sodium Chloride Flush 0.9% 10 Ml Syringe IVP 10 ml 0100,0900,1700 DAMIEN Administration Objective Vital Signs/Intake & Output Reviewed Vital Signs: Yes Intake & Output: Intake & Output 08/17/24 08/18/24 08/19/24 08/20/24 05:59 05:59 05:59 05:59 Intake Total 1220 / 1220 940 / 940 400 / 400 Output Total 1200 / 1200 800 / 800 Balance 940 / 940 -400 / -400 Objective General Appearance: positive No acute distress and Alert Eyes Bilateral: positive Normal inspection and PERRL ENT: positive No signs of dehydration Respiratory: positive No respiratory distress and Breath sounds nml; negative Wheezes, Rales or Rhonchi Cardiovascular: positive Regular rate & rhythm, No murmur and No gallop; negative Irregularly irregular Abdomen: positive Non-tender and Nml bowel sounds Skin: positive Color nml Neurologic/Psychiatric: positive Oriented x3, CN's nml (2-12), Sensation nml, Mood/affect nml and Facial droop; negative Motor nml (Mild disassociation with finger to nose and heel/sow tests.) or Slurred/abnml speech Lab Results 08/15/24 08:58 08/15/24 08:58 Other Labs: Lab Results x24hrs 08/18/24 Range/Units 05:20 Estimat Average Glucose 126 H (70-100) mg/dL Hemoglobin A1c % 6.0 (4.27-6.07) % Diagnostic Imaging Diagnostic Imaging Results: positive See rad report ABX Reporting Has patient been on IV antibiotics over the past 48 hours?: No Assessment/Plan Problem List (1) Acute CVA (cerebrovascular accident): Impression: Patient is remarkably improved since initially being seen in the ER and being admitted. Earlier today patient was able to sit and eat breakfast without any assistance. Currently, she is able to have conversations and follow commands, however there is still mild cognitive deficits present, such as minor difficulty in expressing some words or thoughts or maintaining attention when following commands. No obvious unilateral weakness is present, but minor right sided disassociation was noticed. Mild right sided facial droop is also still present. Echo with bubble study was performed, read as suboptimal with no concerning cardiac valve disease noted. Patient continued on plavix, aspirin, and statin as indicated. Patient was evaluated by PT and reported to be an excellent candidate for inpatient rehab treatment. Currently awaiting response from social work and patient's insurance provider regarding inpatient rehab placement. (2) Hypertension: Impression: Patient is being treated with amlodipine which has kept BP within appropriate limits. Will continue to monitor and adjust as necessary but no immediate interventions are currently needed. Qualifiers: Hypertension type: unspecified Qualified Code(s): I10 - Essential (primary) hypertension (3) DNR (do not resuscitate) discussion: Impression: DNR status was reiterated recently. POLST was filled out and filed yesterday. Documented by User: Wolf Le MD 08/19/24 13:16 Subjective Subjective Subjective: Patient is remarkably better since being admitted. Denies any pain, nausea, vomiting, weakness, headache, or other complaints. Cognition has improved but still presents with minor deficits. Despite minor difficulty, patient is able to maintain conversations and follow commands and seems motivated to working toward overcoming her current situation. She has an excellent support network with her and son. Objective Objective Neurologic/Psychiatric: positive Facial droop Lab Results 08/15/24 08:58 08/15/24 08:58 Assessment/Plan Problem List (1) Acute CVA (cerebrovascular accident): (2) Hypertension: Qualifiers: Hypertension type: unspecified Qualified Code(s): I10 - Essential (primary) hypertension (3) DNR (do not resuscitate) discussion:
--- NOTE | 2024-08-19 13:16 | OT Plan of Care ---
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 Stable for therapy evaluation per MD and RN. Met sitting in chair, A&O to self only - date, location, situation with choices. Cont to present with significant communication deficits however pt able to name 3/3 items and provided consistent /accurate Y/N answers to personally relevant questions. R sided weakness, decreased coordination, R inattention to visual field noted in assessment. Performed sit to stand and ambulation 10ft to/from bathroom using 2WW MIN A - [place] MOD A with heavy cues for task sequencing, motor planning, and attention. Pt will benefit from further cognitive assessment/[employer] evaluation. Overall pt presenting with above deficits impairing functional participation in ADL/IADL's and will benefit from cont OT services 5x week during hospital stay. PATIENT/FAMILY GOALS Patient/Family Goals: Rehab and return home -Activities of Daily Living Improve Upper Extremity Dressing to:: Independent Improve Grooming/Hygiene to:: Independent Improve Bathing to:: Independent Improve Toileting to:: Independent OT Inpatient Plan PLAN Treatment Frequency: 1x/day Duration: Until discharge -Discharge Recommendations Transport Needs at Discharge: BLS vs [facility]lene Comment: Pt will benefit from INPATIENT rehab 2/2 neurological deficits and ability to tolerate 3 hrs therapy a day
[2024-08-19 19:47] VITALS: O2SAT 97
[2024-08-20 06:13] LABS: HCT - HEMATOCRIT 39.3 % (37.0-47.0); HGB - HEMOGLOBIN 12.9 g/dL (12.0-16.0); MEAN CORPUSCULAR HEMOGLOBIN 26.5 pg (27.0-31.0); MEAN CORPUSCULAR HGB CONC 32.8 g/dL (32.0-36.0); MEAN CORPUSCULAR VOLUME 80.7 fL (81.0-99.0); MEAN PLATELET VOLUME 8.9 fL (7.9-10.8); RED BLOOD COUNT 4.87 10^6/uL (4.20-5.40); RED CELL DISTRIBUTION WIDTH 13.5 % (12.0-15.0); WHITE BLOOD COUNT 7.9 x10^3/uL (4.8-10.8)
[2024-08-20 06:21] LABS: CALCIUM 9.2 mg/dL (8.5-10.3); CREATININE 0.8 mg/dL (0.6-1.3); POTASSIUM 3.1 mmol/L (3.5-4.5)
[2024-08-20] MEDS: POTASSIUM CHLORIDE 20 MEQ TABLET PO ONE (08:29)
--- NOTE | 2024-08-20 12:25 | Discharge Summary ---
"Discharge Summary Admit Date: 08/15/24 Discharge Date: 08/20/24 Discharging Provider: Dr. Wolf Le Discharge Facility Name: [facility] DIAGNOSES Admission Diagnoses: Acute CVA (cerebrovascular accident) DNR (do not resuscitate) discussion Hypertension Discharge Diagnoses with Status of Each Condition: Acute CVAMRI shows subacute stroke in left body of the caudate nucleus. Echo left EF of 70%, normal systolic function. MRA was also done which was normal. Her symptoms included effusion, apraxia, aphasia, all of which are resolving. PT/OT saw the patient, recommended IPR. Hypertensioncontinue amlodipine, was doubled while here, with good control blood pressure. DNRPOLST was filled out while she was here. HPI History of Present Illness: Per Dr. Burrell: Patient is a 78 year old female being admitted from the ER for CVA with symptoms that are reported to have started Friday. In speaking with the patient's , he first noticed slight confusion in the form of expressive aphasia which began on Friday. He reports she was still coherent and functional to a point that did not prompt any immediate alarm. Then on Friday or , he noticed she began to be a little more unsteady when walking. He was concerned with insurance coverage and, due to the patient's history, tried making an appointment with a vascular specialist. Overall he felt the symptoms were progressing very slowing and she still retained a lot of function that did not indicate an obvious stroke, so he did not feel 911 was appropriate or necessary. He continues stating that Friday night, no immediate changes were noted, she was able to eat, take her medications, and otherwise function with the only symptoms being the persistent confusion and unsteadiness. This morning, he states he went to wake her up and noticed significant acute changes prompting him to call 911. Throughout the week, he states the patient never complained of nausea or vomiting. He does note she had a headache, however this is a chronic issue she deals with and she never indicated it was worse than normal. No other signs or symptoms were reported. Patient is currently presenting with minor expressive aphasia stating she is having difficulty putting some thoughts into words. Unable to fully asses mental status, possibly due to aphasia. Communicating is noticeably easier when asking direct yes/no questions, but she can still have basic conversations. She is able to identify objects presented to her and appropriately follow commands. Right sided facial droop observed and confirmed by family members. No obvious strength differences noted between extremities to include teradata architect strengths and upper and lower extremity pushing/pulling. Arm drift and leg drift were insignificant bilaterally. Patient is denying any current headache, nausea, vomiting, swallowing difficulty, chest pain, shortness of breath, or other complaints. CONSULTS | PROCEDURES Consultations: Neuroconsult, social work, physical therapy, occupational therapy Procedures: Head CT, brain MRI, neck MRA, brain MRI HOSPITAL COURSE Hospital Course: Patient is a 78-year-old female with a history of hypertension who presented with expressive aphasia, apraxia. Code stroke was called, but due to duration of symptom onset, she was outside of the tPA window. Although CT head was negative, brain MRI, neck MRA, brain MRA was done which did show a subacute stroke in the left body of the caudate nucleus. Echo was also performed which showed no acute abnormalities. Physical therapy and Occupational Therapy worked with the patient, and deemed her suitable for discharge to [facility]. Social work and case management are working on getting insurance authorization for this. ALLERGIES Allergies Allergy/AdvReac Type Severity Reaction Status Date / Time codeine Allergy Unknown Verified 08/15/24 09:56 fentanyl Allergy Unknown Verified 08/15/24 09:56 Iodinated Contrast Media Allergy Anaphylaxis Verified 08/15/24 09:56 MEDICATIONS Ambulatory Orders Medication Instructions Recorded Confirmed amlodipine 5 mg tablet 10 mg (2 x 5 mg) PO DAILY #60 tabs 08/20/24 aspirin 81 mg chewable tablet 81 mg PO DAILY #30 tabs 08/20/24 atorvastatin 40 mg tablet 40 mg PO QPM #30 tabs 08/20/24 clopidogrel 75 mg tablet 75 mg PO DAILY #30 tabs 08/20/24 PHYSICAL EXAM AT DISCHARGE General Appearance: positive No acute distress; negative Anxious Eyes Bilateral: positive Normal inspection, PERRL and EOMI ENT: positive ENT inspection nml, Pharynx nml and No signs of dehydration Neck: positive Nml inspection, Thyroid nml and Trachea midline Respiratory: positive Chest non-tender, No respiratory distress and Breath sounds nml Cardiovascular: positive Regular rate & rhythm, No murmur and No gallop; negative Tachycardia or Bradycardia Peripheral Pulses: positive 2+ Abdomen: positive Non-tender, Nml bowel sounds and No distention; negative Guarding, Hepatomegaly or Splenomegaly Back: positive Nml inspection; negative CVA tenderness (R) or CVA tenderness (L) Skin: positive Color nml, No rash and Dry Extremities: positive Non-tender, Full ROM and No pedal edema Neurologic/Psychiatric: positive Oriented x3 and Motor nml LABS 08/20/24 05:44 08/20/24 05:44 DIAGNOSTIC IMAGING Diagnostic Imaging Results: Final report reviewed SEPSIS Current Stage of Sepsis: Ruled out QUALITY (Female Hip Fx Only) Was patient sent home on osteoporosis medication?: No FOLLOW UP Follow Up: Follow up with neurology, PCP. TIME SPENT Time Spent in Discharge (Minutes): 35 Discharge Plan Discharge Patient Disposition: 62 IRF DC/Xfer Condition: Stable Prescriptions: New amlodipine 5 mg Tablet 10 mg PO DAILY Qty: 60 0RF aspirin 81 mg Tablet,Chewable 81 mg PO DAILY Qty: 30 0RF atorvastatin 40 mg Tablet 40 mg PO QPM Qty: 30 0RF clopidogrel 75 mg Tablet 75 mg PO DAILY Qty: 30 0RF Discontinued aspirin 81 mg tablet,chewable 81 mg PO DAILY amlodipine 2.5 mg tablet 2.5 mg PO DAILY Patient Comments: TAKE 1 TABLET BY MOUTH ONCE DAILY Activity Restrictions: Activity as Tolerated Diet: Regular Health Concerns: You came in because your was worried about you, you were confused, and having some difficulty speaking, as well as difficulties with your balance. You are found to have a subacute stroke. We started you on aspirin and Plavix, as well as a medication for your cholesterol. We also doubled your dose of amlodipine, your blood pressure pill. Physical therapy and Occupational Therapy worked with you, and deemed you suitable for inpatient rehab, a more intensive rehab program. Your insurance authorization was approved. We are glad you are continue to improve, and feeling better. Thank you for letting us take care of you. Care Plan Goals: 1. Continue to get stronger and improve your balance, as well as your speaking. 2. Take your medications as prescribed. 3. Follow-up with neurology. 4. Follow-up with your primary care physician. Print Language: Maori Patient Instructions: Stroke Dc Stand Alone Forms: PCP List"
== END 2024-08-20 13:57 | DRG 65 ==
LOC: ED 08:51 → MS2 08:51
PROVIDERS: ADMIT Specialist; ATTEND Specialist
DX: Z79.82 Long term (current) use of aspirin; R48.2 Apraxia; Z79.899 Other long term (current) drug therapy; R47.01 Aphasia; G81.91 Hemiplegia, unspecified affecting right dominant side; R47.81 Slurred speech; I63.9 Cerebral infarction, unspecified; Z91.041 Radiographic dye allergy status; R29.810 Facial weakness; I10 Essential (primary) hypertension; Z88.5 Allergy status to narcotic agent; Z66 Do not resuscitate; R29.705 NIHSS score 5

== ENCOUNTER 2024-10-19 10:56 | Observation (INO) ==
--- NOTE | 2024-10-19 11:30 | ED Physician Documentation ---
History of Present Illness Stated complaint Stated Complaint: AMS Chief complaint Chief Complaint: Neuro History obtained from History obtained from: Patient and EMS History of Present Illness Timing: Prior to arrival and How many days ago (4) Additonal information Additional information: Patient is a 79-year-old female presenting to the emergency department with altered mental status for the past 4 to 5 days according to EMS. Patient on arrival is trying to get out of bed pulling at soft restraints that were applied on her arrival. She follows some commands but then will try to quickly get out of bed shortly after. She answers occasionally yes or no questions. She is able to answer her name and where she is but does not know the hospital or the date. She had a blood sugar of 128 on arrival. She has past medical history of stroke back in July after but is otherwise healthy 79-year-old female deficit of stroke did leave her with what seems like significant aphasia according to EMS. Adrianne Coma Scale Assess Eye opening: To Voice Verbal response: Confused Motor response: Localizes to Pain Total score: 12 Meds/Allgy Home Medications Ambulatory Orders Medication Instructions Recorded Confirmed amlodipine 5 mg tablet 10 mg (2 x 5 mg) PO DAILY #60 tabs 08/20/24 aspirin 81 mg chewable tablet 81 mg PO DAILY #30 tabs 08/20/24 atorvastatin 40 mg tablet 40 mg PO QPM #30 tabs 08/20/24 clopidogrel 75 mg tablet 75 mg PO DAILY #30 tabs 08/20/24 Allergies Allergies Allergy/AdvReac Type Severity Reaction Status Date / Time codeine Allergy Unknown Verified 10/19/24 11:09 fentanyl Allergy Unknown Verified 10/19/24 11:09 Iodinated Contrast Media Allergy Anaphylaxis Verified 10/19/24 11:09 [facility] Medical History Medical History (Updated 08/21/24 @ 00:00 by ) History of multiple miscarriages Acute dehydration on trip to [place] 6 yrs ago, airlifted off [facility] and hospitalized Vertigo Hypertension TIA (transient ischemic attack) Surgical History Surgical History (Updated 08/15/24 @ 17:57 by Amy Burrell MD) S/P cervical spinal fusion Family History Family History (Updated 08/15/24 @ 18:00 by Amy Burrell MD) Mother CAD (coronary artery disease) MVA (motor vehicle accident) Brother CAD (coronary artery disease) Father Multiple sclerosis MVA (motor vehicle accident) Brother MVA (motor vehicle accident) Social History Social History (Updated 08/15/24 @ 17:44 by Juvenal Amezcua) Smoking Status: Never smoker Second hand tobacco smoke exposure: No Do you dip or chew tobacco?: No Do you vape?: No Living arrangement: At home Marital Status: Living Condition: With spouse/s.o. Support Person: Yes Relationship: Caregiver Physical Activity: Walking Level: Independent History of Abuse: No ETOH Use: None and Wine Frequency: Weekly Substance Use: denies use POLST Patient has POLST: No POLST Status: DNR Exam Constitutional normal general appearance HENMT normocephalic and head/scalp atraumatic Eyes PERRL and EOMs intact bilaterally Neck/C-Spine visual inspection normal, trachea midline and cervical spine nontender Lymph no lymphadenopathy noted Chest inspection of chest normal Respiratory breath sounds equal bilaterally, normal respiratory effort and clear to auscultation bilaterally Cardiovascular normal heart rate noted, regular rhythm noted, no gallop and no rub Gastrointestinal abdomen normal to inspection Genitourinary no CVA tenderness Extremities Patient moving all extremities without difficulty no obvious deformity full range of motion Neurology Patient has no movement she has GCS of 12 on arrival no fasciculations unable to evaluate gait due to confusion at this time. Psychiatry Patient not cooperative ANO x 2 following some commands but mental status does not appear stable Results Vitals Vitals: Vital Signs - 24 hr 10/19/24 11:04 10/19/24 11:09 10/19/24 13:17 Temperature 36.5 C Temperature Source Temporal Artery Scan Pulse Rate 96 94 77 Respiratory Rate 20 20 20 Blood Pressure 132/62 H 132/61 H 166/76 H O2 Saturation 94 93 98 O2 Source Room air Room air Room air Pain Intensity 0 0 0 Oxygen O2 Source Room air Labs Labs: Laboratory Tests 10/19/24 10/19/24 10/19/24 11:15 11:28 11:28 WBC 11.9 H RBC 4.10 L Hgb 10.6 L Hct 32.6 L MCV 79.5 L MCH 25.9 L MCHC 32.5 RDW 14.3 Plt Count 468 H MPV 8.5 Neut # (Auto) Not Reportable Lymph # (Auto) Not Reportable [place] # (Auto) Not Reportable Eos # (Auto) Not Reportable Baso # (Auto) Not Reportable Absolute Nucleated RBC Not Reportable Total Counted 100 Band Neuts % (Manual) 1 Abnorm Lymph % (Manual) 0 Nucleated RBC % Not Reportable Neutrophils # (Manual) 8.7 H Lymphocytes # (Manual) 2.3 Monocytes # (Manual) 1.0 Eosinophils # (Manual) 0.0 Basophils # (Manual) 0.0 Differential Comment MANUAL DIFFERENTIAL Manual Slide Review Indicated WBC Morphology NORMAL APPEARANCE Platelet Estimate INCREASED (>450,000) Platelet Morphology NORMAL APPEARANCE RBC Morph Micro Appear 1+ POIKILOCYTOSIS 1+ OVALOCYTES Sodium 133 L Potassium 2.5 L* Chloride 89 L Carbon Dioxide 32 Anion Gap 12.0 BUN 19 Creatinine 1.0 Estimated GFR (MDRD) 54 L Glucose 110 H Calcium 9.8 Magnesium 2.2 Total Bilirubin 0.9 AST 26 ALT 38 Alkaline Phosphatase 134 H Total Creatine Kinase 134 Total Protein 7.5 Albumin 4.4 Globulin 3.1 Albumin/Globulin Ratio 1.4 Urine Color YELLOW Urine Clarity CLEAR Urine pH 6.5 Ur Specific [place] 1.010 Urine Protein NEGATIVE Urine Glucose (UA) NEGATIVE Urine Ketones NEGATIVE Urine Occult Blood NEGATIVE Urine Nitrite NEGATIVE Urine Bilirubin NEGATIVE Urine Urobilinogen 0.2 (NORMAL) Ur Leukocyte Esterase NEGATIVE Ur Microscopic Review NOT INDICATED Urine Culture Comments NOT INDICATED Nasal Adenovirus (PCR) NOT DETECTED Nasal B. parapertussis DNA (PCR) NOT DETECTED Nasal Coronavir 229E PCR NOT DETECTED Nasal Coronavir HKU1 PCR NOT DETECTED Nasal Coronavir NL63 PCR NOT DETECTED Nasal Coronavir OC43 PCR NOT DETECTED Nasal Enterovir/Rhinovir PCR NOT DETECTED Nasal Influenza B PCR NOT DETECTED Nasal Influenza A PCR NOT DETECTED Nasal Parainfluen 1 PCR NOT DETECTED Nasal Parainfluen 2 PCR NOT DETECTED Nasal Parainfluen 3 PCR NOT DETECTED Nasal Parainfluen 4 PCR NOT DETECTED Nasal RSV (PCR) NOT DETECTED Nasal B.pertussis DNA PCR NOT DETECTED Nasal C.pneumoniae (PCR) NOT DETECTED Gonzalo Human Metapneumo PCR NOT DETECTED Nasal M.pneumoniae (PCR) NOT DETECTED Nasal SARS-CoV-2 (PCR) NOT DETECTED Urine Opiates Screen NEGATIVE Ur Buprenorphine Scrn NEGATIVE Ur Oxycodone Screen NEGATIVE Urine Methadone Screen NEGATIVE Ur Barbiturates Screen NEGATIVE Ur Tricyclics Screen NEGATIVE Ur Phencyclidine Scrn NEGATIVE Ur Amphetamine Screen NEGATIVE U Methamphetamines Scrn NEGATIVE U Benzodiazepines Scrn NEGATIVE Urine Cocaine Screen NEGATIVE U Cannabinoids Screen NEGATIVE Ur Drug Screen Comment CUTOFF CONC BELOW: Ethyl Alcohol < 10.0 Rads (name of study) CT head without contrast: Relevant Findings:: Prelim report reviewed and EMP independent interpretation of test CXR: Relevant Findings:: EMP independent interpretation of test PD Medical Decision Making ED course Complexity details: reviewed old records and reviewed results ED course: Patient 79-year-old female presenting to the emergency department from home where she resides with her with persistent confusion. Patient suffered previous CVA back in July currently resides at home with some deficits with speaking at baseline, According to EMS. She on arrival was confused. She was having trouble following commands, persistently trying to get out of bed and was not able to be redirected for more than a few seconds to lay in bed. Soft restraints were ordered here in the ED. Patient remained irritable pulling on soft restraints and small dose of ativan was ordered to be given for helping patient not pull on restraints too much. CT head without contrast: Stable lacunar infarcts no acute intracranial bleed. CXR: No acute cardiopulmonary findings. Labs here in the emergency department show mild leukocytosis with mild anemia as well a number of neutrophils could be secondary to infection however urine analysis and respiratory panel are negative additionally. Chest x-ray shows no acute findings and alcohol and urine drug screen are negative. CK is within normal range. Potassium levels are critical at 2.5 will replace here in the Emergency Department. Patient admitted to hospitalist who is agreeable with this plan. Discharge Plan Discharge Prescriptions: No Action amlodipine 5 mg Tablet 10 mg PO DAILY Qty: 60 0RF aspirin 81 mg Tablet,Chewable 81 mg PO DAILY Qty: 30 0RF atorvastatin 40 mg Tablet 40 mg PO QPM Qty: 30 0RF clopidogrel 75 mg Tablet 75 mg PO DAILY Qty: 30 0RF Print Language: Polish Stand Alone Forms: PCP List
[2024-10-19 11:34] LABS: BASOPHILS % (AUTO) 0.2 %; EOSINOPHILS % (AUTO) 3.5 %; HGB - HEMOGLOBIN 10.6 g/dL (12.0-16.0); LYMPHOCYTES % (AUTO) 13.7 %; MEAN CORPUSCULAR HEMOGLOBIN 25.9 pg (27.0-31.0); MEAN CORPUSCULAR HGB CONC 32.5 g/dL (32.0-36.0); MEAN CORPUSCULAR VOLUME 79.5 fL (81.0-99.0); MEAN PLATELET VOLUME 8.5 fL (7.9-10.8); MONOCYTES % (AUTO) 13.6 %; NEUTROPHILS % (AUTO) 68.5 %; PLT - PLATELET COUNT 468 10^3/uL (130-450); RED CELL DISTRIBUTION WIDTH 14.3 % (12.0-15.0); WHITE BLOOD COUNT 11.9 x10^3/uL (4.8-10.8)
[2024-10-19 11:36] LABS: SLIDE REVIEW? Indicated
[2024-10-19] MEDS: LORazepam 2 MG/ML VIAL IVP STA (11:36)
[2024-10-19 11:37] LABS: ABNORMAL LYMPHS % (MANUAL) 0 %
[2024-10-19 11:51] LABS: CK- CREATINE KINASE 134 IU/L (30-223); ETOH - ETHANOL < 10.0 mg/dL; MAGNESIUM 2.2 mg/dL (1.7-2.3)
[2024-10-19 11:52] LABS: BILIRUBIN,URINE NEGATIVE (NEGATIVE); GLUCOSE, URINE (UA) NEGATIVE (NEGATIVE); KETONES,URINE (UA) NEGATIVE (NEGATIVE); LEUKOCYTE ESTERASE, URINE NEGATIVE (NEGATIVE); NITRITE,URINE NEGATIVE (NEGATIVE); OCCULT BLOOD,URINE NEGATIVE (NEGATIVE); PH,URINE 6.5 PH (5.0-7.5); PROTEIN,URINE NEGATIVE (NEGATIVE); UROBILINOGEN,URINE 0.2 (NORMAL) E.U./dL (NORMAL)
[2024-10-19 11:53] LABS: CLARITY,URINE CLEAR (CLEAR)
[2024-10-19 12:00] LABS: ALBUMIN 4.4 g/dL (3.2-5.5); ALBUMIN/GLOBULIN RATIO 1.4 (1.0-2.2); ALKALINE PHOSPHATASE 134 IU/L (42-121); ALT ALANINE AMINOTRANSFERASE 38 IU/L (10-60); AST ASPARTATE AMINOTRANSFERASE 26 IU/L (10-42); BILIRUBIN,TOTAL 0.9 mg/dL (0.2-1.0); BUN - BLOOD UREA NITROGEN 19 mg/dL (6-20); CALCIUM 9.8 mg/dL (8.5-10.3); CARBON DIOXIDE - CO2 32 mmol/L (21-32); CHLORIDE 89 mmol/L (101-111); GFR - MDRD 54 (>89); GLUCOSE 110 mg/dL (74-104); POTASSIUM 2.5 mmol/L (3.5-4.5); SODIUM 133 mmol/L (135-145); TOTAL PROTEIN 7.5 g/dL (6.4-8.9)
[2024-10-19 12:03] LABS: AMPHETAMINE SCREEN,URINE NEGATIVE (NEGATIVE); BARBITURATE SCREEN,UR NEGATIVE (NEGATIVE); BENZODIAZEPINES SCREEN, URINE NEGATIVE (NEGATIVE); BUPRENORPHINE SCREEN, URINE NEGATIVE (NEGATIVE); COCAINE SCREEN URINE NEGATIVE (NEGATIVE); METHADONE SCREEN, URINE NEGATIVE (NEGATIVE); METHAMPHETAMINES SCREEN, URINE NEGATIVE (NEGATIVE); OPIATE SCREEN, URINE NEGATIVE (NEGATIVE); OXYCODONE SCREEN, URINE NEGATIVE (NEGATIVE); THC CANNABINOID SCREEN, URINE NEGATIVE (NEGATIVE); TRICYCLIC ANTIDEPRESSANT,URINE NEGATIVE (NEGATIVE)
--- NOTE | 2024-10-19 12:06 | XRAY Report ---
PROCEDURE: XR Chest 1V INDICATIONS: sepsis work up TECHNIQUE: One view of the chest was acquired. COMPARISON: None. FINDINGS: Surgical changes and devices: None. Lungs and pleura: No pleural effusions or pneumothorax. No consolidation. There is a calcified gran uloma in the left lung base. Lung volumes are mildly diminished. Mediastinum: Mediastinal contours appear normal. Heart size is normal. Bones and chest wall: No suspicious bony lesions. Overlying soft tissues appear unremarkable. IMPRESSION: No acute cardiopulmonary process. Reviewed by: Sharon Bains MD on 10/19/2024 12:04 PM PST Approved by: Sharon Bains MD on 10/19/2024 12:04 PM PST Station ID: [email or web address]
[2024-10-19 12:10] LABS: BAND NEUTROPHILS % (MANUAL) 1 %; LYMPHOCYTES # (MANUAL) 2.3 10^3/uL (1.5-3.5); LYMPHOCYTES % (MANUAL) 19 %; NEUTROPHILS # (MANUAL) 8.7 10^3/uL (1.5-6.6)
[2024-10-19 12:13] LABS: DIFFERENTIAL COMMENT MANUAL DIFFERENTIAL; PLATELET ESTIMATE, MANUAL INCREASED (>450,000) (NORMAL); PLATELET MORPHOLOGY NORMAL APPEARANCE (NORMAL); WBC MORPHOLOGY (MULTIPLE) NORMAL APPEARANCE (NORMAL)
--- NOTE | 2024-10-19 12:18 | CT Report ---
PROCEDURE: CT Head WO INDICATIONS: AMS TECHNIQUE: Noncontrast 4.5 mm thick angled axial sections acquired from the foramen magnum to the vertex. For r adiation dose reduction, the following was used: automated exposure control, adjustment of mA and/or kV according to patient size. COMPARISON: CT August 15, 2024 FINDINGS: Image quality: Excellent. CSF spaces: Basal cisterns are patent. No extra-axial fluid collections. Ventricles are normal in size and shape. Brain: There are old bilateral lacunar infarcts. No midline shift. No intracranial masses or hemorr jairon. Flores-white matter interface is normal. Skull and face: Calvarium and visualized facial bones are intact, without suspicious lesions. Sinuses: Visualized sinuses and mastoids are clear. IMPRESSION: No acute intracranial pathology or hemorrhage. Old bilateral lacunar infarcts. Reviewed by: Sharon Bains MD on 10/19/2024 12:17 PM PST Approved by: Sharon Bains MD on 10/19/2024 12:17 PM PST Station ID: [email or web address]
[2024-10-19 12:31] LABS: HCT - HEMATOCRIT 32.6 % (37.0-47.0)
[2024-10-19] MEDS: POTASSIUM CHLOR 10 MEQ/100 ML 10 MEQ/100 ML BAG IV SCH ×3 (12:32→16:03)
[2024-10-19] MEDS: POTASSIUM BICARB 25 MEQ TABLET PO STA (13:15)
[2024-10-19 13:25] LABS: CORONAVIRUS 229E-RESP PCR NOT DETECTED; CORONAVIRUS HKU1-RESP PCR NOT DETECTED; CORONAVIRUS NL63-RESP PCR NOT DETECTED; CORONAVIRUS OC43-RESP PCR NOT DETECTED; HUMAN METAPNEUMOVIRUS NOT DETECTED; INFLUENZA A- RESP PCR PANEL NOT DETECTED; SARS-CoV-2 -RESP PCR PANEL NOT DETECTED
[2024-10-19 13:26] LABS: B. PARAPERTUSSIS- RESP PCR PAN NOT DETECTED; B. PERTUSSIS- RESP PCR PANEL NOT DETECTED; C. PNEUMONIAE- RESP PCR PANEL NOT DETECTED; INFLUENZA B - RESP PCR PANEL NOT DETECTED; M. PNEUMONIAE- RESP PCR PANEL NOT DETECTED; PARAINFLUENZA VIRUS 1 NOT DETECTED; PARAINFLUENZA VIRUS 2 NOT DETECTED; PARAINFLUENZA VIRUS 4 NOT DETECTED; RHINOVIRUS/ENTEROVIRUS NOT DETECTED; RSV- RESP PCR PANEL NOT DETECTED
--- NOTE | 2024-10-19 14:11 | HISTORY & PHYSICAL EXAMINATION ---
Chief Complaint Chief Complaint Chief Complaint: Confusion History of Present Illness Admitted From Admitted From:: Home, With History Obtained From Records Reviewed: EMR History obtained from: EMR, interview with has been Exam Limitations: Patient sedated on Ativan History of Present Illness HPI Comment/Other: 79-year-old female with PMH significant for Left subacute stroke last year presents with delirium. reports that for the past few nights, she has been pacing a lot and has experienced urinary frequency which is contributed to very poor sleep for the both of them. Denies fever, chills, chest pain, dyspnea, disturbances in bowel pattern. She was delirious and pulling at medical devices on presentation, so she was given a dose of IV Ativan. She was also placed in restraints In the ER, workup was overall unremarkable. CT head, CXR, UA all unremarkable. Meds/Allgy Home Medications Ambulatory Orders Medication Instructions Recorded Confirmed amlodipine 5 mg tablet 10 mg (2 x 5 mg) PO DAILY #60 tabs 08/20/24 aspirin 81 mg chewable tablet 81 mg PO DAILY #30 tabs 08/20/24 atorvastatin 40 mg tablet 40 mg PO QPM #30 tabs 08/20/24 clopidogrel 75 mg tablet 75 mg PO DAILY #30 tabs 08/20/24 Allergies Allergies Allergy/AdvReac Type Severity Reaction Status Date / Time codeine Allergy Unknown Verified 10/19/24 11:09 fentanyl Allergy Unknown Verified 10/19/24 11:09 Iodinated Contrast Media Allergy Anaphylaxis Verified 10/19/24 11:09 [facility] Medical History Medical History (Updated 10/19/24 @ 14:10 by Dann Gao DNP) History of multiple miscarriages Acute dehydration on trip to [place] 6 yrs ago, airlifted off [facility] and hospitalized Vertigo Hypertension TIA (transient ischemic attack) Surgical History Surgical History (Updated 08/15/24 @ 17:57 by Amy Burrell MD) S/P cervical spinal fusion Family History Family History (Updated 08/15/24 @ 18:00 by Amy Burrell MD) Mother CAD (coronary artery disease) MVA (motor vehicle accident) Brother CAD (coronary artery disease) Father Multiple sclerosis MVA (motor vehicle accident) Brother MVA (motor vehicle accident) Social History Social History (Updated 08/15/24 @ 17:44 by Juvenal Amezcua) Smoking Status: Never smoker Second hand tobacco smoke exposure: No Do you dip or chew tobacco?: No Do you vape?: No Living arrangement: At home Marital Status: Living Condition: With spouse/s.o. Support Person: Yes Relationship: Caregiver Physical Activity: Walking Level: Independent History of Abuse: No ETOH Use: None and Wine Frequency: Weekly Substance Use: denies use POLST Patient has POLST: No POLST Status: DNR Review of Systems ROS severely limited by patient being asleep on Ativan. Status of ROS: unobtainable due to medical condition Exam Constitutional normal general appearance Sleeping heavily after dose of Ativan HENMT normocephalic and head/scalp atraumatic Eyes PERRL Neck/C-Spine visual inspection normal Lymph no lymphadenopathy noted Chest inspection of chest normal and palpation of chest normal Respiratory breath sounds equal bilaterally Cardiovascular normal heart rate noted Gastrointestinal abdomen normal to inspection and abdomen soft to palpation Extremities normal to inspection Neurology Extremely somnolent on Ativan. Moves all extremities Skin skin color normal Conclusion/Plan Problem List (1) Altered mental status: Plan: Delirious without obvious cause CT head, CXR, UA all unremarkable Will add respiratory viral panel Has been reports urinary frequency times past several days. UA was clear. It is possible that the sleep disturbance is from her frequency are contributing to this Flomax Sleep hygiene Appears dehydrated, will give 1 L NS with 20 KCl Caution with psychoactive drugs, will consider a very low-dose Seroquel or Haldol tonight to encourage sleep Melatonin Qualifiers: Altered mental status type: delirium Qualified Code(s): R41.0 - Disorientation, unspecified (2) Hypokalemia: Plan: Replete IV BMP again this afternoon, Then daily (3) Hyponatremia: Plan: Possibly contributory to delirium 1 L NS, recheck BMP tonight Plan Placed in observation for altered mental status of unclear etiology PT/OT consult Full code is surrogate decision-maker Lab Results Lab results reviewed: Yes 10/19/24 11:28 10/19/24 11:28 Core Measures Anticipated LOS I expect patient to be DC'd or transferred within 96 hours.: Yes DVT/VTE - Prophylaxis VTE/DVT Prophylaxis med ordered at admit?: Yes
[2024-10-19] MEDS: NS W/20 MEQ KCL 1,000 ML IV SCH (14:32)
[2024-10-19] MEDS ORDERED: ONDANSETRON 4 MG/2 ML VIAL IVP PRN (14:57)
[2024-10-19] MEDS ORDERED: ONDANSETRON ODT 4 MG TABLET TL PRN (14:57)
[2024-10-19] MEDS ORDERED: SODIUM CHLORIDE FLUSH 0.9% 10 ML SYRINGE IVP PRN (14:57)
[2024-10-19] MEDS ORDERED: ACETAMINOPHEN 325 MG TABLET PO PRN (14:57)
[2024-10-19] MEDS ORDERED: diphenhydrAMINE 25 MG CAPSULE PO PRN (15:37)
--- NOTE | 2024-10-19 15:40 | MISCELLANEOUS PROVIDER NOTE ---
Miscellaneous Provider Note - Note: Last POLST we have on file is DNR. at bedside wishes her to be full code.
[2024-10-19] MEDS: TAMSULOSIN 0.4 MG CAPSULE PO SCH (15:57)
[2024-10-19] MEDS: SODIUM CHLORIDE FLUSH 0.9% 10 ML SYRINGE IVP SCH (16:03)
[2024-10-19] MEDS: OLANZapine 10 MG VIAL IM ONE (17:07)
[2024-10-19] MEDS ORDERED: diphenhydrAMINE INJ 50 MG/ML VIAL IVP PRN (18:28)
[2024-10-19 19:00] LABS: CALCIUM 9.2 mg/dL (8.5-10.3); CREATININE 0.7 mg/dL (0.6-1.3); POTASSIUM 2.7 mmol/L (3.5-4.5)
[2024-10-19] MEDS: MELATONIN 3 MG TABLET PO SCH (20:23)
[2024-10-20 06:13] LABS: BASOPHILS % (AUTO) 0.5 %; EOSINOPHILS # (AUTO) 0.2 10^3/uL (0.0-0.7); EOSINOPHILS % (AUTO) 2.1 %; HCT - HEMATOCRIT 33.8 % (37.0-47.0); HGB - HEMOGLOBIN 10.8 g/dL (12.0-16.0); LYMPHOCYTES % (AUTO) 23.3 %; MEAN CORPUSCULAR HEMOGLOBIN 25.9 pg (27.0-31.0); MEAN CORPUSCULAR VOLUME 81.1 fL (81.0-99.0); MEAN PLATELET VOLUME 8.7 fL (7.9-10.8); MONOCYTES # (AUTO) 1.1 10^3/uL (0.0-1.0); MONOCYTES % (AUTO) 12.8 %; NEUTROPHILS # (AUTO) 5.2 10^3/uL (1.5-6.6); NEUTROPHILS % (AUTO) 61.1 %; PLT - PLATELET COUNT 420 10^3/uL (130-450); RED BLOOD COUNT 4.17 10^6/uL (4.20-5.40); RED CELL DISTRIBUTION WIDTH 14.6 % (12.0-15.0); WHITE BLOOD COUNT 8.5 x10^3/uL (4.8-10.8)
[2024-10-20 06:28] LABS: CALCIUM 9.4 mg/dL (8.5-10.3); CREATININE 0.8 mg/dL (0.6-1.3); POTASSIUM 3.2 mmol/L (3.5-4.5)
[2024-10-20 08:08] VITALS: BP 152/70; TEMP 97.9; O2SAT 97
[2024-10-20] MEDS: THIAMINE 100 MG TABLET PO SCH (09:22)
[2024-10-20] MEDS: ENOXAPARIN 40 MG/0.4 ML SYRINGE SUBQ SCH (09:22)
[2024-10-20] MEDS: PRENATAL VITAMIN TABLET PO SCH (09:23)
[2024-10-20] MEDS: ASPIRIN CHEW 81 MG TABLET PO SCH (10:13)
[2024-10-20] MEDS: CLOPIDOGREL 75 MG TABLET PO SCH (10:13)
[2024-10-20] MEDS: MULTIVITAMIN TABLET PO SCH (10:13)
--- NOTE | 2024-10-20 10:15 | PHARMACY PROGRESS NOTE ---
Best Possible Medication History Admit Date and Time: 10/19/24 [id number] Home Medications Medication Instructions Recorded Confirmed Type aspirin 81 mg chewable tablet 81 mg PO DAILY #30 tabs 08/20/24 10/20/24 Rx atorvastatin 40 mg tablet 40 mg PO QPM #30 tabs 08/20/24 10/20/24 Rx clopidogrel 75 mg tablet 75 mg PO DAILY #30 tabs 08/20/24 10/20/24 Rx amlodipine 10 mg tablet 10 mg PO ONCE 10/20/24 10/20/24 History multivitamin 1 tab PO DAILY 10/20/24 10/20/24 History Processed by: Pharmacy Medications reviewed in ED?: Yes Medication History completed: Yes Patient Interview: Completed Secondary Source(s): Pharmacy records and Insurance records [facility] Statement: As the person ultimately responsible for medication therapy, providers are able to order a medication from an existing home medication list in [facility] via the "Reconcile Routine" prior to Confirmation of that medication by network support technician. Such practice is discouraged except when the physician, in their clinical judgment, deems that a medical need exists for a medication without regard to previous use.
--- NOTE | 2024-10-20 10:59 | Discharge Summary ---
"Discharge Summary Admit Date: 10/19/24 Discharge Date: 10/20/24 Discharging Provider: Joan Rios PA-C Primary Care Provider: Karen Caban Code Status: Do Not Attempt Resuscitation DIAGNOSES Discharge Diagnoses with Status of Each Condition: Altered mental status, resolved. Hypokalemia, repleted and resolved recommend recheck within 1 week Hyponatremia, resolved recommend recheck in 1 week History of CVA HPI History of Present Illness: 79-year-old female with PMH significant for Left subacute stroke last year presents with delirium. reports that for the past few nights, she has been pacing a lot and has experienced urinary frequency which is contributed to very poor sleep for the both of them. Denies fever, chills, chest pain, dyspnea, disturbances in bowel pattern. She was delirious and pulling at medical devices on presentation, so she was given a dose of IV Ativan. She was also placed in restraints In the ER, workup was overall unremarkable. CT head, CXR, UA all unremarkable. CONSULTS | PROCEDURES Procedures: Chest x-ray: No acute cardiopulmonary process Head CT: No acute intracranial pathology or hemorrhage old bilateral lacunar infarcts HOSPITAL COURSE Hospital Course: (1) Altered mental status: Plan: Delirious without obvious cause. resolved overnight. She is back to her baseline. at bedside concurs and would like to take her home. CT head, CXR, UA all unremarkable viral respiratory panel was negative. Has been reports urinary frequency times past several days. UA was clear. It is possible that the sleep disturbance is from her frequency are contributing to this. They correlate this with changing statin to bedtime. She has never experienced adverse effects from daytime statin use, so they will change back to daytime statin. (2) Hypokalemia: Plan: repleted here. I discharged to home with 10mEq KCl daily. Encouraged PCP followup for recheck. Laboratory Tests 10/19/24 10/19/24 10/20/24 11:28 18:39 04:54 Potassium 2.5 L* 2.7 L 3.2 L (3) Hyponatremia: Plan: mild and resolved. Laboratory Tests 10/19/24 10/19/24 10/20/24 11:28 18:39 04:54 Sodium 133 L 138 140 ALLERGIES Allergies Allergy/AdvReac Type Severity Reaction Status Date / Time codeine Allergy Unknown Verified 10/19/24 11:09 fentanyl Allergy Unknown Verified 10/19/24 11:09 Iodinated Contrast Media Allergy Anaphylaxis Verified 10/19/24 11:09 MEDICATIONS Ambulatory Orders Medication Instructions Recorded Confirmed aspirin 81 mg chewable tablet 81 mg PO DAILY #30 tabs 08/20/24 10/20/24 atorvastatin 40 mg tablet 40 mg PO QPM #30 tabs 08/20/24 10/20/24 clopidogrel 75 mg tablet 75 mg PO DAILY #30 tabs 08/20/24 10/20/24 amlodipine 10 mg tablet 10 mg PO ONCE 10/20/24 10/20/24 multivitamin 1 tab PO DAILY 10/20/24 10/20/24 PHYSICAL EXAM AT DISCHARGE General Appearance: positive No acute distress and Alert Eyes Bilateral: positive Normal inspection ENT: positive ENT inspection nml Neck: positive Nml inspection Respiratory: positive No respiratory distress and Breath sounds nml Cardiovascular: positive Regular rate & rhythm Abdomen: positive No distention Skin: positive Color nml Extremities: positive No pedal edema Neurologic/Psychiatric: positive Oriented x3 and Other (does have some incorrected details regarding daily life with her . recalls that family is coming from [facility] to visit in 2 days. ) LABS 10/20/24 04:54 10/20/24 04:54 FOLLOW UP Follow Up: PCP one week. TIME SPENT Time Spent in Discharge (Minutes): 40 Discharge Plan Discharge Patient Disposition: 06 Home Health Service Condition: Stable Prescriptions: New potassium chloride [Klor-Con 10] 10 mEq tablet extended release 10 meq PO DAILY Qty: 30 2RF Continued aspirin 81 mg Tablet,Chewable 81 mg PO DAILY Qty: 30 0RF atorvastatin 40 mg Tablet 40 mg PO QPM Qty: 30 0RF clopidogrel 75 mg Tablet 75 mg PO DAILY Qty: 30 0RF amlodipine 10 mg tablet 10 mg PO ONCE Patient Comments: TAKE 1 TABLET BY MOUTH ONCE DAILY multivitamin Tablet 1 tab PO DAILY Diet: Cardiac Interventions: Discharge Last Done: 10/20/24 11:49 Discharge Checklist - Nursing Last Done: 10/20/24 11:49 Health Concerns: You are a 79-year-old female who came into the hospital for confusion yesterday. Your past medical history is significant for a stroke which happened in July 2024. You have been having some urinary frequency. When you came into the hospital, we checked your urine for an infection. There was absolutely no evidence of a urinary tract infection. You did have some abnormalities in your electrolytes. Your sodium was slightly low, and this corrected on its own additionally your potassium was low at 2.5. Normal potassium is 3.5-4.5. You were given patient will continue. You potassium supplementation and your potassium has improved this morning to 3.2. I am giving you additional potassium before you go home. I am going to send some potassium tablets into the pharmacy. I want you to have your potassium checked by your primary care doctor in a week or so. You are not on any medications which should cause decreased potassium. Make sure you eat plenty of fresh fruits and vegetables as most of these have potassium in them. We have sent orders in for home health. We will have many different disciplines see you and figure out what might be the most helpful for you at home. We are sending a nurse, social work, physical therapy, Occupational Therapy, speech therapy and a home health aide. Care Plan Goals: I think your is meeting most of your care needs at home. We are sending home health to try to help you continue to recover from your stroke and transition to home care. Assessment: We are sending physical therapy, Occupational Therapy and speech therapy to help you with your activities of daily living such as bathing dressing toileting and eating. They can also help out with some cognitive deficits which are normal after your stroke. They can help assess your home environment and make it is safe and manageable as possible. You should have a primary care follow-up appointment within the next week or so. We have referred to home health., You have chosen [facility]. Plan of Treatment: I am prescribing potassium 10 mill equivalents daily. I will send this into your pharmacy of choice. I want you to have your potassium and sodium checked in about a week. Print Language: Omani Follow-up Care: KAREN CABAN MD [Physician No Access] -"
[2024-10-20] MEDS: POTASSIUM CHLORIDE 20 MEQ TABLET PO ONE (11:33)
--- NOTE | 2024-10-20 13:17 | OT Plan of Care ---
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 Denies fever, chills, chest pain, dyspnea, disturbances in bowel pattern. She was delirious and pulling at medical devices on presentation, so she was given a dose of IV Ativan. In the ER, workup was overall unremarkable. CT head, CXR, UA all unremarkable. Met supine in bed, A&Ox3 previous CVA with residual cognitive and visual spatial deficits appear exacerbated at the moment however no acute neurological deficits per assessment. Pt performed functional mobility and simple ADLs with CGA and set up assist using RW present and agreeable to 24 hr assistance upon d.c. No further skilled OT needed at acute level of care Rec d/c home with HH OTPT to address above deficits and return pt to baseline safety and function. PATIENT/FAMILY GOALS Patient/Family Goals: Rehab and return home -Activities of Daily Living Improve Grooming/Hygiene to:: Independent OT Inpatient Plan PLAN Treatment Frequency: Evaluation only, no further O.T. Duration: Until discharge -Discharge Recommendations Discharge Location: Previous Living Situation Transport Needs at Discharge: S vs van
--- NOTE | 2024-10-20 13:18 | PT Plan of Care ---
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 Pt is known to this PT having been seen in acute setting s/p CVA with expressive aphasia and incoordination in Jul 2024. At that time pt was dc'd to [facility] then progressed to dc home. Unclear whether pt had received HH services but she has been home since 09/01/24 walking with FWW and light assist from . Has shower aid weekly. Upon PT eval, pt is able to follow 3-4 step cues and easily directable but demonstrates difficulty with problem solving and complex or abstract ideas. Speech is intelligible but overall hypoverbal. Able to amb x100' w/ FWW and SBA but unable to avoid obstacles, problem solve, or pathfind. Given above impairments, pt will benefit from skilled PT to improve balance, safety, coordination, and gait pattern. When medically clear, PT rec dc home with HHPT/OT/bathaide. GOALS Improve supine to sit to:: Independent Improve sit to stand to:: Modified Independent Improve pivot transfer ability to:: Modified Independent Improve sit to supine to:: Modified Independent Improve gait ability to:: SBA Advance Assistive Device to:: Front Wheeled Walker Increase distance walked to (in feet):: 200 PLAN Frequency: 1-2x/day Duration: Until goals are met DISCHARGE RECOMMENDATIONS Discharge Location: Previous Living Situation Support/Services Needed: Home Health P.T. DC Equipment Recommended: Front wheeled walker Other Discharge Equipment: tbd at IRF Transport Needs at Discharge: BLS vs van
[2024-10-20] MEDS ORDERED: ATORVASTATIN 40 MG TABLET PO SCH (21:00)
== END 2024-10-20 11:45 | disposition home health service (06) ==
LOC: MS2 10:56 → ED 10:56 → MS2 14:47
PROVIDERS: ADMIT Nurse Practitioner Acute Care; ATTEND Nurse Practitioner Acute Care
DX: E86.0 Dehydration; Z66 Do not resuscitate; I69.320 Aphasia following cerebral infarction; E87.6 Hypokalemia; D72.829 Elevated white blood cell count, unspecified; Z78.1 Physical restraint status; R41.82 Altered mental status, unspecified; R35.0 Frequency of micturition; D64.9 Anemia, unspecified; E87.1 Hypo-osmolality and hyponatremia; I10 Essential (primary) hypertension